=== PATIENT | female | born 1985 | race Caucasian/White ===

== ENCOUNTER 2018-03-04 20:12 | Emergency (ER) | payer MEDICAID ==
[~2018-03-04] VITALS: Ht 165.1 cm; Wt 81.7 kg
[~2018-03-04 20:12] MED LIST: CEPHALEXIN500 MG PO; CORTISPORIN-TC10 ML OTIC; DOXYCYCLINE HY100 MG PO; HUMALOG100 UNITS/; LANTUS100 UNIT/1; LISINOPRIL5 MG; NAPROXEN375 MG PO; NORCO 5-325 TA1 EACH PO; ROBAXIN500 MG PO; TRAMADOL HCL50 MG PO; ULTRAM50 MG PO; VICODIN 5-3001 EACH PO; ZOFRAN ODT8 MG SL
== END 2018-03-05 00:01 | disposition home or self-care (01) ==
LOC: ED 20:12
DX: E10.65 Type 1 diabetes mellitus with hyperglycemia (principal); F17.200 Nicotine dependence, unspecified, uncomplicated
CPT/HCPCS: 80053; 81001; 82010; 82800; 84703; 85025; 96361; 96374; 96375; 96376; 99284; J1815; J2405; J7030

== ENCOUNTER 2018-09-06 22:42 | Emergency (ER) | payer MEDICAID ==
[~2018-09-06] VITALS: Ht 165.1 cm; Wt 81.7 kg
--- OUTSIDE RECORDS SUMMARY | 2018-09-06 22:44 | XMS ---
PreManage Notification: ROBB LOPEZ Security Forgesmith Events No recent Security Events currently on file CRITERIA MET - Group Notification CARE PROVIDERS There are no care providers on record at this time. Darcie has no Care Guidelines for this patient. Matthew VISIT COUNT (12 MO.) 2 FRAN Alexandre TOTAL 2 NOTE: Visits indicate total known visits. ED/C VISIT TRACKING (12 MO.) 09/06/2018 22:42 [facility] [place] TYPE: Emergency COMPLAINT: - POSS R/L EAR INFECTION 03/04/2018 20:13 [facility] TYPE: Emergency COMPLAINT: - DIABETIC PROBLEM DIAGNOSES: - Nausea - Type 1 diabetes mellitus with hyperglycemia - Nicotine dependence, unspecified, uncomplicated INPATIENT VISIT TRACKING (12 MO.) No inpatient visits to display in this time frame [id number]
== END 2018-09-06 23:06 | disposition home or self-care (01) ==
LOC: ED 22:42
DX: H60.93 Unspecified otitis externa, bilateral (principal); E10.9 Type 1 diabetes mellitus without complications; F17.200 Nicotine dependence, unspecified, uncomplicated
CPT/HCPCS: 99282

== ENCOUNTER 2019-01-12 16:36 | Emergency (ER) | payer OTHER, BC ==
[~2019-01-12] VITALS: Ht 165.1 cm; Wt 79.4 kg
--- OUTSIDE RECORDS SUMMARY | 2019-01-12 16:38 | XMS ---
PreManage Notification: ROBB LOPEZ Security Pier Worker Events No recent Security Events currently on file CRITERIA MET - Group Notification CARE PROVIDERS There are no care providers on record at this time. Darcie has no Care Guidelines for this patient. Matthew VISIT COUNT (12 MO.) 3 FRAN Alexandre TOTAL 3 NOTE: Visits indicate total known visits. ED/C VISIT TRACKING (12 MO.) 01/12/2019 16:36 [facility] TYPE: Emergency COMPLAINT: - R SHOULDER INJURY 09/06/2018 22:42 [facility] TYPE: Emergency COMPLAINT: - POSS R/L EAR INFECTION DIAGNOSES: - Unspecified otitis externa, bilateral - Type 1 diabetes mellitus without complications - Nicotine dependence, unspecified, uncomplicated - Otalgia, bilateral 03/04/2018 20:13 [facility] [place] TYPE: Emergency COMPLAINT: - DIABETIC PROBLEM DIAGNOSES: - Nausea - Type 1 diabetes mellitus with hyperglycemia - Nicotine dependence, unspecified, uncomplicated INPATIENT VISIT TRACKING (12 MO.) No inpatient visits to display in this time frame [id number]
== END 2019-01-12 17:15 | disposition home or self-care (01) ==
LOC: ED 16:36
DX: S46.911A Strain of unspecified muscle, fascia and tendon at shoulder and upper arm level, right arm, initial encounter (principal); E10.9 Type 1 diabetes mellitus without complications; F17.200 Nicotine dependence, unspecified, uncomplicated; X50.1XXA Overexertion from prolonged static or awkward postures, initial encounter
CPT/HCPCS: 99282

== ENCOUNTER 2019-03-31 00:54 | Emergency (ER) | payer BC ==
[~2019-03-31] VITALS: Ht 165.1 cm; Wt 79.4 kg
--- OUTSIDE RECORDS SUMMARY | 2019-03-31 00:56 | XMS ---
PreManage Notification: ROBB LOPEZ Security Bunker Worker Events No recent Security Events currently on file CRITERIA MET - Group Notification CARE PROVIDERS DREW BAUTISTA Physician 01/13/2019-Current PHONE: [phone] Darcie has no Care Guidelines for this patient. E.Isreal VISIT COUNT (12 MO.) 3 FRAN Alexandre TOTAL 3 NOTE: Visits indicate total known visits. ED/UCC VISIT TRACKING (12 MO.) 03/31/2019 00:55 [facility] TYPE: Emergency COMPLAINT: - SORE THROAT, EAR PAIN 01/12/2019 16:36 [facility] TYPE: Emergency COMPLAINT: - R SHOULDER INJURY DIAGNOSES: - Type 1 diabetes mellitus without complications - Nicotine dependence, unspecified, uncomplicated - Strain of unspecified muscle, fascia and tendon at shoulder and upper arm level, right arm, initial encounter - Overexertion from prolonged static or awkward postures, initial encounter - Unspecified injury of right shoulder and upper arm, initial encounter 09/06/2018 22:42 [facility] TYPE: Emergency COMPLAINT: - POSS R/L EAR INFECTION DIAGNOSES: - Unspecified otitis externa, bilateral - Type 1 diabetes mellitus without complications - Nicotine dependence, unspecified, uncomplicated - Otalgia, bilateral INPATIENT VISIT TRACKING (12 MO.) No inpatient visits to display in this time frame [id number]
[2019-03-31] MEDS ORDERED: LISINOPRIL2.5 MG PO (01:35)
[2019-03-31] MEDS ORDERED: AMOXICILLIN500 MG PO (02:21)
== END 2019-03-31 02:44 | disposition home or self-care (01) ==
LOC: ED 00:54
DX: H66.92 Otitis media, unspecified, left ear (principal); E10.9 Type 1 diabetes mellitus without complications; F17.200 Nicotine dependence, unspecified, uncomplicated; Z79.899 Other long term (current) drug therapy
CPT/HCPCS: 99282

== ENCOUNTER 2019-05-18 09:10 | Emergency (ER) | payer OTHER, BC ==
[~2019-05-18] VITALS: Ht 165.1 cm; Wt 79.4 kg
[~2019-05-18 09:10] MED LIST changes: +AMOXICILLIN500 MG PO; +LISINOPRIL2.5 MG PO
--- OUTSIDE RECORDS SUMMARY | 2019-05-18 09:14 | XMS ---
PreManage Notification: ROBB LOPEZ Security Intensive Care Medicine Specialist Events No recent Security Events currently on file CRITERIA MET - Group Notification CARE PROVIDERS DREW BAUTISTA Physician 01/13/2019-Current PHONE: [phone] Darcie has no Care Guidelines for this patient. E.Isreal VISIT COUNT (12 MO.) 4 FRAN Alexandre TOTAL 4 NOTE: Visits indicate total known visits. ED/UCC VISIT TRACKING (12 MO.) 05/18/2019 09:11 [facility] TYPE: Emergency COMPLAINT: - RIGHT SHOULDER PAIN, INJ 03/31/2019 00:55 [facility] TYPE: Emergency COMPLAINT: - SORE THROAT, EAR PAIN DIAGNOSES: - Nicotine dependence, unspecified, uncomplicated - Other group home (current) drug therapy - 1 Type 1 diabetes mellitus without complications - Otitis media, unspecified, left ear - Otalgia, left ear 01/12/2019 16:36 [facility] TYPE: Emergency COMPLAINT: - R SHOULDER INJURY DIAGNOSES: - 1 Type 1 diabetes mellitus without complications - Nicotine dependence, unspecified, uncomplicated - Strain unsp musc/fasc/tend at shldr/up arm, right arm, init - Overexertion from prolonged static or awkward postures, init - Unsp injury of right shoulder and upper arm, init encntr 09/06/2018 22:[address] [facility] [place] TYPE: Emergency COMPLAINT: - POSS R/L EAR INFECTION DIAGNOSES: - Unspecified otitis externa, bilateral - 1 Type 1 diabetes mellitus without complications - Nicotine dependence, unspecified, uncomplicated - Otalgia, bilateral INPATIENT VISIT TRACKING (12 MO.) No inpatient visits to display in this time frame [id number]
[2019-05-18] MEDS ORDERED: NORCO 5-325 TA1 EACH PO (09:57)
== END 2019-05-18 10:10 | disposition home or self-care (01) ==
LOC: ED 09:10
DX: S43.401A Unspecified sprain of right shoulder joint, initial encounter (principal); X58.XXXA Exposure to other specified factors, initial encounter; E10.9 Type 1 diabetes mellitus without complications; F17.200 Nicotine dependence, unspecified, uncomplicated; Z79.899 Other long term (current) drug therapy
CPT/HCPCS: 99283

== ENCOUNTER 2020-01-15 00:52 | Emergency (ER) | payer BC ==
[~2020-01-15] VITALS: Ht 165.1 cm; Wt 77.1 kg
--- OUTSIDE RECORDS SUMMARY | 2020-01-15 00:54 | XMS ---
PreManage Notification: ROBB LOPEZ Security Supervisor Mattress And Boxsprings Events No recent Security Events currently on file CRITERIA MET - Group Notification CARE PROVIDERS DREW BAUTISTA Physician Retail Salesperson 01/13/2019-Current PHONE: [phone] Darcie has no Care Guidelines for this patient. EGretchen VISIT COUNT (12 MO.) 3 FRAN Alexandre TOTAL 3 NOTE: Visits indicate total known visits. ED/UCC VISIT TRACKING (12 MO.) 01/15/2020 00:52 [facility] TYPE: Emergency COMPLAINT: - CHEST PAIN 05/18/2019 09:11 [facility] [place] TYPE: Emergency COMPLAINT: - RIGHT SHOULDER PAIN, INJ/WORKERS COMP DIAGNOSES: - Nicotine dependence, unspecified, uncomplicated - Pain in right shoulder - Type 1 diabetes mellitus without complications - Exposure to other specified factors, initial encounter - Other shelter (current) drug therapy - Unspecified sprain of right shoulder joint, initial encounter 03/31/2019 00:55 [facility] [place] TYPE: Emergency COMPLAINT: - SORE THROAT, EAR PAIN DIAGNOSES: - Nicotine dependence, unspecified, uncomplicated - Other shelter (current) drug therapy - Type 1 diabetes mellitus without complications - Otitis media, unspecified, left ear - Otalgia, left ear INPATIENT VISIT TRACKING (12 MO.) No inpatient visits to display in this time frame [id number]
--- NOTE | 2020-01-15 12:58 | EKG ---
[facility] [address] [facility] [place], [place] [address] Signed Normal sinus rhythm Normal ECG No previous ECGs available Confirmed by PHOEBE VALLEJO MD ([id number]) on 01/15/2020 12:57:52 PM Electronically Signed By: PHOEBE VALLEJO MD 01/15/20 1258 PATIENT NAME: ROBB LOPEZ Electrocardiogram DATE OF : 85 PHYSICIAN: PHOEBE VALLEJO MD REPORT #: [id number] REPORT IS CONFIDENTIAL AND NOT TO BE RELEASED WITHOUT AUTHORIZATION
== END 2020-01-15 06:00 | disposition home or self-care (01) ==
LOC: ED 00:52
DX: R07.9 Chest pain, unspecified (principal); E10.9 Type 1 diabetes mellitus without complications; F17.200 Nicotine dependence, unspecified, uncomplicated; Z79.899 Other long term (current) drug therapy
CPT/HCPCS: 71045; 71260; 80053; 83735; 84484; 85025; 85379; 93005; 93010; 99285-25; J1815; J7030; Q9967

== ENCOUNTER 2020-10-02 22:44 | Emergency (ER) | payer BC, OTHER ==
[~2020-10-02] VITALS: Ht 165.1 cm; Wt 77.0 kg
--- OUTSIDE RECORDS SUMMARY | 2020-10-02 22:46 | XMS ---
PreManage Notification: ROBB LOPEZ Security Globe Cleaner Events No recent Security Events currently on file CRITERIA MET - Group Notification CARE PROVIDERS DREW BAUTISTA Physician County Auditor 01/13/2019-Current PHONE: [phone] Darcie has no Care Guidelines for this patient. EGretchen VISIT COUNT (12 MO.) 2 FRAN Alexandre TOTAL 2 NOTE: Visits indicate total known visits. ED/UCC VISIT TRACKING (12 MO.) 10/02/2020 22:45 [facility] TYPE: Emergency COMPLAINT: - LT ANKLE PAIN 01/15/2020 00:52 [facility] TYPE: Emergency COMPLAINT: - CHEST PAIN DIAGNOSES: - Nicotine dependence, unspecified, uncomplicated - Type 1 diabetes mellitus without complications - Other exterminator (current) drug therapy - Chest pain, unspecified INPATIENT VISIT TRACKING (12 MO.) No inpatient visits to display in this time frame [id number]
== END 2020-10-02 23:55 | disposition home or self-care (01) ==
LOC: ED 22:44
DX: M25.572 Pain in left ankle and joints of left foot (principal); E10.9 Type 1 diabetes mellitus without complications; F17.200 Nicotine dependence, unspecified, uncomplicated; Z79.899 Other long term (current) drug therapy
CPT/HCPCS: 73610; 99283-25

== ENCOUNTER 2023-04-26 21:34 | Observation (INO) | payer OTHER ==
[~2023-04-26] VITALS: Ht 165.1 cm; Wt 71.8 kg
[~2023-04-26 21:34] MED LIST changes: +AMOX TR-K CLV1 EAC1 PO
--- OUTSIDE RECORDS SUMMARY | 2023-04-26 21:42 | XMS ---
PreManage Notification: ROBB LOPEZ Security Sheet Metal Apprentice Events No recent Security Events currently on file CRITERIA MET - Group Notification - [facility] - 2 Visits in 30 Days CARE PROVIDERS -, [place]- Dentist: It Consulting Manager [facility] PHONE: [phone] DREW BAUTISTA Physician Cloth Tearer Current PHONE: Unknown GABRIEL LUCERO [facility]/Center: [facility] PHONE: Unknown VIKKI VIRAMONTES [facility] Current PHONE: Unknown Darcie has no Care Guidelines for this patient. Matthew VISIT COUNT (12 MO.) 2 FRAN Alexandre TOTAL 2 NOTE: Visits indicate total known visits. ED/UCC VISIT TRACKING (12 MO.) 04/26/2023 21:34 [facility] [place] TYPE: Emergency COMPLAINT: - FOOT PAIN 04/09/2023 08:[address] [facility] [place] TYPE: Emergency COMPLAINT: - L FOOT PAIN DIAGNOSES: - Cellulitis of left lower limb - stereotyper (current) use of insulin - Nicotine dependence, unspecified, uncomplicated - Other nursing home (current) drug therapy - Pain in left foot - Type 1 diabetes mellitus without complications INPATIENT VISIT TRACKING (12 MO.) No inpatient visits to display in this time frame [id number]
[2023-04-26 22:22] LABS: BASOPHILS 0.8 % (0-2); EOSINOPHILS 4.1 % (0-6); HEMATOCRIT 30.4 % (35.0-50.0); HEMOGLOBIN 10.1 g/dL (12.0-18.0); LYMPHOCYTES 32.7 % (24-44); MCH 28.7 (27-36); MCHC 33.2 g/dl (30-36); MCV 86.5 fl (81-99); MONOCYTES 5.2 % (0-12); NEUTROPHILS 57.2 % (39-80); PLATELET COUNT 438 K/uL (140-440); RBC 3.52 M/ul (4.3-5.7); RDW 13.1 (10.5-15.0)
[2023-04-26 22:41] LABS: LACTIC ACID, BLOOD 1.2 mmol/L (0.4-2.0)
[2023-04-26 22:44] LABS: ALBUMIN 2.6 g/dL (3.4-5.0); ALBUMIN/GLOBULIN RATIO 0.52 (1.1-2.4); ANION GAP 14.4 (7-21); BILIRUBIN, TOTAL 0.1 ng/dL (0.2-1.0); BUN/CREATININE RATIO 10.84 (6.0-28.6); CALCIUM 8.7 mg/dL (8.5-10.1); CREATININE, SERUM 0.83 mg/dL (0.55-1.02); POTASSIUM 4.4 mmol/L (3.5-5.1); PROTEIN, TOTAL 7.6 g/dL (6.4-8.2)
[2023-04-27 00:47] LABS: PH, VENOUS 7.429 (7.31-7.41)
[2023-04-27 01:36] LABS: INFLUENZA B NAA NEGATIVE (NEGATIVE); RESPIRATORY SYNCYTIAL VIR NAA NEGATIVE (NEGATIVE)
[2023-04-27 02:32] VITALS: BP 123/81
--- NOTE | 2023-04-27 03:00 | NUR ---
PT ARRIVED TO THE UNIT. FAST FOOD TEAM MEMBER GAVE REPORT AT BEDSIDE. PT WAS ABLE TO AMBULATE TO BED INDEPENDENTLY. VITAL SIGNS WITH IN NORMAL LIMITS. LEFT FOOT ULCER ASSESSED AND DRESSED. PT SAFETY EXPECTATIONS EXPLAINED, ALL QUESTIONS AND CONCERSN ADDRESSED. CALL LIGHT WITH IN REACH.
[2023-04-27 05:20] LABS: BASOPHILS 0.7 % (0-2); EOSINOPHILS 5.1 % (0-6); HEMATOCRIT 30.9 % (35.0-50.0); HEMOGLOBIN 10.2 g/dL (12.0-18.0); LYMPHOCYTES 37.9 % (24-44); MCH 28.6 (27-36); MCHC 33.1 g/dl (30-36); MCV 86.3 fl (81-99); MONOCYTES 4.8 % (0-12); NEUTROPHILS 51.5 % (39-80); PLATELET COUNT 308 K/uL (140-440); RBC 3.58 M/ul (4.3-5.7)
[2023-04-27 05:30] LABS: ANION GAP 12.8 (7-21); BUN/CREATININE RATIO 16.12 (6.0-28.6); CALCIUM 8.5 mg/dL (8.5-10.1); CREATININE, SERUM 0.62 mg/dL (0.55-1.02); POTASSIUM 3.8 mmol/L (3.5-5.1)
[2023-04-27 06:00] VITALS: BP 97/65
--- NOTE | 2023-04-27 06:46 | NUR ---
PT IS RESTING PEACFULLY IN BED. NO COMPLAINTS OF PAIN AT THIS TIME. ALL VS ARE WITH IN NORMAL LIMITS AT THIS TIME. QUESTIONS AND CONCERNS ADDRESSED. CALL LIGHT WITH IN REACH.
--- NOTE | 2023-04-27 08:00 | NUR ---
WOKE PATIENT FOR ASSESSMENT AND ACCUCHECK. STATES SHE SLEPT WELL AFTER RECEIVING MORPHINE. ACCUCHECK 349. HUMALOG 9 UNITS SQ GIVEN. TALKED WITH PATEINT ABOUT WOUND ON HER LEFT FOOT. DRESSING TO LEFT FOOT IS INTACT. C/O PAIN, DENIES NEED FOR PAIN MEDICATION. IVF PATENT. SITTING UP IN BED READY FOR BREAKFAST.
[2023-04-27 08:23] VITALS: BP 126/83
--- NOTE | 2023-04-27 09:00 | NUR ---
WOUND CONSULT ORDERED. WAITRESS IS AWARE. DR. MONTOYA HAS BEEN HERE TO SEE PATEINT. POSSIBLE DISCHARGE TODAY.
--- NOTE | 2023-04-27 10:00 | NUR ---
DRESSING TO LEFT FOOT REMAINS INTACT.
--- NOTE | 2023-04-27 11:00 | NUR ---
UP TO BR TO VOID. AMBULATING W/O ASSIST. BACK TO BE W/O INCIDENT. DENIES NEED FOR PAIN MEDICATION.
[2023-04-27 11:50] VITALS: BP 135/91
--- NOTE | 2023-04-27 12:00 | NUR ---
ORDERS RECEIVED TO DISCHARGE PATIENT. SITTING UP IN BED FOR LUNCH.
[2023-04-27] MEDS ORDERED: LEVOFLOXAC750 MG/150 PO (12:09)
--- NOTE | 2023-04-27 12:35 | NUR ---
DISCHARGE INSTRUCTIONS GIVEN WITH PATIENT UNDERSTANDING. SL DC'D WITH CATH INTACT.
[2023-04-27 12:44] VITALS: BP 146/93
--- NOTE | 2023-04-27 12:50 | NUR ---
DISCHARGED VIA W/C. HERE TO TAKE PATIENT HOME.
--- NOTE | 2023-04-27 13:10 | NUR ---
DR. DRAKE HERE TO SEE PATIENT. ORDERS RECEIVED.
--- NOTE | 2023-04-27 13:20 | NUR ---
TO CT VIA W/C.
--- NOTE | 2023-04-27 13:30 | NUR ---
RETURN TO CCU. SITTING UP IN BED FOR LUNCH. TOLERATED CT WELL. MOVING WELL WITH INCREASE PAIN WITH MOVEMENT.
== END 2023-04-27 12:55 | disposition home or self-care (01) ==
LOC: ED 21:34 → CCU 21:35
PROVIDERS: Family Medicine; ADMIT Internal Medicine; ATTEND Internal Medicine
DX: L03.116 Cellulitis of left lower limb (principal); S91.302A Unspecified open wound, left foot, initial encounter; X58.XXXA Exposure to other specified factors, initial encounter; E10.9 Type 1 diabetes mellitus without complications; F17.200 Nicotine dependence, unspecified, uncomplicated; Z79.4 Long term (current) use of insulin; Z79.899 Other long term (current) drug therapy; Z20.822 Contact with and (suspected) exposure to COVID-19
CPT/HCPCS: 36415; 73700; 80048; 80053; 82010; 82803; 83605; 85025; 87502; 96361; 96374; 96375; 99284-25; J1815; J1956; J2270; J2405; J3370; J7030; J7121; Q9967; U0002

== ENCOUNTER 2023-05-20 08:12 | Inpatient (IN) | payer OTHER ==
[~2023-05-20] VITALS: Ht 165.1 cm; Wt 69.0 kg
[~2023-05-20 08:12] MED LIST changes: -HUMALOG100 UNITS/; +HUMALOG100 UNITS/ SUB-Q; -LANTUS100 UNIT/1; +LANTUS100 UNITS/ SUB-Q; +LEVOFLOXAC750 MG/150 PO
--- OUTSIDE RECORDS SUMMARY | 2023-05-20 08:21 | XMS ---
PreManage Notification: ROBB LOPEZ Security Cnc Laser Operator Events No recent Security Events currently on file CRITERIA MET - Group Notification - [facility] - 2 Visits in 30 Days CARE PROVIDERS -, [place]- Dentist: Auto Seat Cover Installer [facility] PHONE: [phone] DREW BAUTISTA Physician Teacher Of The Handicapped Current PHONE: Unknown GABRIEL LUCERO [facility]/Center: [facility] PHONE: Unknown VIKKI VIRAMONTES [facility] Current PHONE: Unknown Darcie has no Care Guidelines for this patient. Matthew VISIT COUNT (12 MO.) 3 FRAN Alexandre TOTAL 3 NOTE: Visits indicate total known visits. 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 - Nicotine dependence, unspecified, uncomplicated - Other custodial (current) drug therapy - Pain in left foot - Type 1 diabetes mellitus without complications INPATIENT VISIT TRACKING (12 MO.) 04/26/2023 21:35 [facility] [place] TYPE: Observation COMPLAINT: - CELLULITIS DIAGNOSES: - Cellulitis of left lower limb - Contact with and (suspected) exposure to COVID-19 - Exposure to other specified factors, initial encounter - retirement (current) use of insulin - Nicotine dependence, unspecified, uncomplicated - Other custodial (current) drug therapy - Type 1 diabetes mellitus without complications - Unspecified open wound, left foot, initial encounter [id number]
[2023-05-20 09:39] LABS: BASOPHILS 0.6 % (0-2); EOSINOPHILS 2.1 % (0-6); HEMATOCRIT 39.4 % (35.0-50.0); HEMOGLOBIN 12.8 g/dL (12.0-18.0); LYMPHOCYTES 13.7 % (24-44); MCHC 32.5 g/dl (30-36); MONOCYTES 5.9 % (0-12); NEUTROPHILS 77.7 % (39-80); PLATELET COUNT 315 K/uL (140-440); RBC 4.58 M/ul (4.3-5.7); RDW 13.3 (10.5-15.0)
[2023-05-20 09:55] LABS: ALBUMIN/GLOBULIN RATIO 0.57 (1.1-2.4); ANION GAP 12.8 (7-21); BILIRUBIN, TOTAL 0.2 ng/dL (0.2-1.0); BUN/CREATININE RATIO 23.07 (6.0-28.6); CALCIUM 9.3 mg/dL (8.5-10.1); CREATININE, SERUM 0.78 mg/dL (0.55-1.02); POTASSIUM 4.8 mmol/L (3.5-5.1); PROTEIN, TOTAL 8.3 g/dL (6.4-8.2)
[2023-05-20 11:16] LABS: INFLUENZA B NAA NEGATIVE (NEGATIVE); RESPIRATORY SYNCYTIAL VIR NAA NEGATIVE (NEGATIVE)
[2023-05-20 12:20] VITALS: BP 147/89
--- NOTE | 2023-05-20 12:42 | NUR ---
CALL FROM LAB THAT WOUND CULTURES HAD NOT BEEN DONE IN ER. CALL TO ER NURSE DAX, SHE VERIFIED THAT WOUND CULTURES WERE NOT DONE. CALL TO DR. DE THAT WOUND CULTURES HAD NOT BEEN DONE BEFORE LEVAQUIN AND DAPTO ANTIBIOTICS WERE GIVEN AND HE WOULD LIKE US TO GO AHEAD AND GET CULTURES.
--- NOTE | 2023-05-20 12:55 | NUR ---
CALL TO DR. RONQUILLO, HE IS CALLING FOR PODIATRY CONSULT AND WE WILL WAIT ON WOUND NURSE CONSULT AT THIS TIME.
--- NOTE | 2023-05-20 14:53 | NUR ---
MED REC COMPLETE
--- NOTE | 2023-05-20 14:56 | NUR ---
PT IS A 37 YEAR OLD FEMALE WITH IDDM TYPE 1, CURRENT EVERY DAY SMOKER. PT HERE FOR LEFT DORSAL FOOT WOUND. PT REPORTS SHE HURT HER LEFT FOOT IN FEBRUARY, SHE CANNOT REMEMBER HOW, FOLLOWING THIS EVEN HER LEFT FOOT DEVELOPED A PAINFUL "BUMP" FOR WHICH SHE SOUGHT TREATMENT IN THE [facility] ER IN . PT STATES SHE WAS DX'D WITH A HEMATOMA ON HER LEFT DORSAL FOOT. SHE WAS REFERRED TO THE [facility] DAY [facility]OUND [facility] SERVICES WHO MANAGED THE HEMATOMA/WOUND FOR APPROXIMATELY 4-5 WEEKS WITH MEDIHONEY AND HYDROFERA BLUE DRESSINGS. PT REPORTS THAT WHEN SHE WOKE UP THIS MORNING SHE FOUND A LARGE PAINFUL BUMP ON THE MEDIAL BORDER OF HER WOUND WHICH SHE STATES BROKE AND EXPRESSED PUSS AND BLOOD. SHE THEN CAME IMEDIATELY TO THE [facility] ER. UPON ASSESSMENT NOTED PT HAS A FULLTHICKNESS WOUND ON THE DORSAL ASPECT OF THE LEFT FOOT OVER THE 4TH AND 5TH METATARSALS. THERE IS A FOUL ODOR. THE WOUND BASE IS 60% DEVITALIZED TENDON/TISSUE AND 40% PINK MOIST GRANULATION TISSUE. IN THE AREA OF DEVITALIZED TISSUE THE WOUND PROBES TO BONE. THERE IS A SMALL AMOUNT OF YELLOW DRAINAGE. A WOUND CULTURE WAS OBTAINED. PICTURES AND MEASUREMENTS WHERE OBTAINED. THE PERIWOUND ERYTHEMA BORDERS WERE MARKED. NOTED A LARGE RED BULGE AT 1200 OF THE MAGEN-WOUND WHICH IS FLUCTUANT, PAINFUL AND HAS A VESICLE OVER THE CENTER, SUSPECTED ABCESS. WOUND CLEANSED WITH WOUND CLEANSER AND NS, PATTED DRY. HSA-PW-XYLAF GAUZE DRESSING APPLIED AND SECURED WITH ELASTIC BANDAGE. PT TOLERATED WELL. PT WAITING FOR EVALUATION BY PODIATRY.
--- NOTE | 2023-05-20 16:00 | NUR ---
Spoke with ROBB. She admits to the hospital with failure at home for cellulitis. Pt states she lives in a home with 2 steps with her spouse, son, and mom. She does not use any DME. She and family split vice president compliance, except for shopping and cleaning. She does these. Pt denies issues of getting in or out of home. 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 She states she is able to work and keep her foot up. 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 She denies financial issues and does not use a food bank or have financial needs. Both she and spouse work and he also has VA benefits. Pt plans on dc to home after seeing podiatry. She does not currently have a pcp, but does have an appt to see Dr. Jiang at the physician clinic on the 27 of May to establish care.
--- NOTE | 2023-05-20 17:43 | NUR ---
INTO SEE PT. COMPLETES EVALUATION OF LEFT FOOT WOUND, IRRIGATES AND DRESSES WOUND.
--- NOTE | 2023-05-20 17:57 | NUR ---
DR. POON TO PERFORM SURGICAL DEBRIDEMENT TOMORROW, 05/21/23, IN OR. DISCUSSED WITH PT NPO STATUS STARTING AT MIDNIGHT TONIGHT. PT VERBALIZES UNDERSTANDING.
[2023-05-20 18:09] VITALS: BP 125/81
--- NOTE | 2023-05-20 19:12 | NUR ---
BEDSIDE REPORT RECEIVED FROM LILLIANA COTTON, PT ALERT AND CHEERFUL, WITHOUT REQUESTS AT THIS TIME, PT LAYING IN BED.
[2023-05-20 20:49] VITALS: BP 130/80
--- NOTE | 2023-05-20 20:49 | NUR ---
VS DONE PER IBRAHIMA BELCHER, VS REVIEWED AND STABLE FOR PT, REPORT RECEIVED OF ELEVATED BLOOD SUGAR OF 434, PT TOLD IBRAHIMA BELCHER THAT SHE DRANK A BOTTLE OF LEMONAIDE THAT HER MOTHER BROUGHT IN EARILIER SO SHE THOUGHT HER BLOOD SUGAR WOULD PROBABLY BE ELEVATED.
--- NOTE | 2023-05-20 21:00 | NUR ---
PRIMARY RN NOTIFIED RE BLOOD SUGAR CHECK DONE AND THE RESULT.
--- NOTE | 2023-05-20 21:15 | NUR ---
TC TO DR RONQUILLO TO REPORT ELEVATED BLOOD SUGAR OF 434, ORDERS RECEIVED TO GIVE HUMALOG 11 UNITS SQ, GLARGINE 10 UNITS SQ AND IN ADDITION GIVEN 5 UNITS OF REGULAR INSULIN 5 UNITS SQ, ORDER READ BACK TO MD TO VERIFY. PLAN REPEAT BLOOD SUGAR 0200 OR PRN.
--- NOTE | 2023-05-20 21:33 | NUR ---
PT AWAKE AND ALERT, INSULINS GIVEN PER ORDER, PLAN TO MONITOR BLOOD SUGARS EVERY 6 HOURS WHEN PT MADE NPO AFTER MIDNIGHT. PT ENCOURAGED TO CALL NURSE WITH ANY SIGNS OF HYPOGLYCEMIA OR OTHER CONCERNS. ASSESSMENT COMPLETED, LEFT FOOT DRESSING DRY AND INTACT, ABLE TO WIGGLE TOES, TOES WARMS, BASELINE NEUROPATHY (TINGLING) REMAINS, POSTERIOR TIBIAL PULSE PALPABLE, STRONG. WATER GIVEN, PT VISITING WITH . PT DENIES NEED FOR PAIN MEDICATION.
--- NOTE | 2023-05-20 21:42 | NUR ---
LR HUNG AND INFUSING WELL AT 100ML/HR PER LEFT AC SL, SITE INTACT. PT WITHOUT REQUESTS.
--- NOTE | 2023-05-20 23:00 | NUR ---
PT AWAKE, RESTING IN BED, LOOKING AT CELL PHONE, PT STATES SHE RECENTLY GOT UP TO VOID, BACK TO BED, WITHOUT REQUESTS AT THIS TIME.
[2023-05-21] VITALS (7 sets, daily range): BP systolic 92–139; BP diastolic 54–93
--- NOTE | 2023-05-21 00:02 | NUR ---
PT REMAINS AWAKE, WITHOUT REQUESTS, PT MADE NPO FOR AM SURGERY, PT WITHOUT IV INFUSING WELL.
--- NOTE | 2023-05-21 02:00 | NUR ---
PT AWAKEN, ALERT, VS DONE AND STABLE, AFEBRILE, ACCUCHECK 186, IV INFUSING WELL, PT WITHOUT REQUESTS, ATTEMPTING TO REST, REMAINS NPO.
--- NOTE | 2023-05-21 04:40 | NUR ---
PT APPEARS TO SLEEP, RESP EVEN AND REG.
[2023-05-21 05:19] LABS: HEMOGLOBIN 11.1 g/dL (12.0-18.0); MCH 28.1 (27-36)
[2023-05-21 05:21] LABS: BASOPHILS 0.4 % (0-2); EOSINOPHILS 3.7 % (0-6); HEMATOCRIT 33.7 % (35.0-50.0); LYMPHOCYTES 25.4 % (24-44); MCHC 32.9 g/dl (30-36); MCV 85.3 fl (81-99); MONOCYTES 8.2 % (0-12); NEUTROPHILS 62.3 % (39-80); PLATELET COUNT 280 K/uL (140-440); RBC 3.95 M/ul (4.3-5.7); RDW 13.5 (10.5-15.0)
[2023-05-21 05:31] LABS: ALBUMIN 2.2 g/dL (3.4-5.0); ALBUMIN/GLOBULIN RATIO 0.49 (1.1-2.4); ANION GAP 13.8 (7-21); BILIRUBIN, TOTAL 0.2 ng/dL (0.2-1.0); BUN/CREATININE RATIO 27.77 (6.0-28.6); CALCIUM 8.2 mg/dL (8.5-10.1); CREATININE, SERUM 0.54 mg/dL (0.55-1.02); MAGNESIUM 1.5 mg/dL (1.8-2.4); PHOSPHORUS, INORGANIC 4.1 mg/dL (2.5-4.9); POTASSIUM 3.8 mmol/L (3.5-5.1); PROTEIN, TOTAL 6.7 g/dL (6.4-8.2)
--- NOTE | 2023-05-21 06:15 | NUR ---
PT INSTRUCTED ON CHLORHEXIDINE WIPES, INSTRUCTION SHEET GIVEN TO PT, PT UP TO BR TO COMPLETE AND PUT ON NEW GOWN, BED LINEN CHANGED, PT BACK TO BED, ASSESSMENT COMPLETED, LEFT FOOT DRESSING DRY, CMS TO LEFT FOOT UNCHANGED, IV PATENT AND IV SITE INTACT. PT REMAINS NPO, WITHOUT REQUESTS.
--- NOTE | 2023-05-21 06:49 | NUR ---
PRE PROCEDURE CHECK OUT STARTED.
--- NOTE | 2023-05-21 07:13 | NUR ---
REPORT RECEIVED FROM YURY CARTER. PT LAYING IN BED WITH EYES CLOSED. RR EVEN AND UNLBAORED. BED ALARM ON AND SIDE RAILS UP FOR SAFTEY. NO OTHER NEEDS IDENTIFIED AT THIS TIME. CALL LIGHT IN REACH.
--- NOTE | 2023-05-21 08:48 | NUR ---
THIS RN TO ROOM TO ASSIST WITH START. 20G IV STARTED TO RIGHT FORARM PER PER PROTOCOL. PT TOLEARTED WELL. BRISK BLOOD RETURN NOTED. IV FLUIDS RESTRTED BY YURY URBINA. NO ADDITIONAL REQUESTS OR COMPLAINTS. CALL LIGHT WITHIN REACH. BED RAILS UP.
--- NOTE | 2023-05-21 08:55 | NUR ---
IN TO ADMINISTER MEDICATION, SEE MAR. IV IN LEFT AC NOTED TO BE LEAKING AND AC NOTED TO BE EDEMATOUS. IV REMOVED WNL. THIS RN ATTEMTED 2 IC STARTS WITH NO SUCCESS. YURY GERMAIN IN TO ATTEMPT IV START WITH SUCCESS. IV FLUSHES WNL. IV FLUIDS INFUSE WNL. ASSESSMENT COMPLETE. PT REPORTING PAIN 7/10 IN LEFT FOOT, PT DENIES PRN PAIN MEDICATION WHEN OFFERED. LUNG SOUNDS CLEAR. BOWEL TONES ACTIVE. PEDAL PULSES PALPABLE. LEFT FOOT DRESSING C/D/I. CAPILARY REFILL IN BILATERAL FEET <3 SECONDS. PT DENIES ANY OTHER NEEDS AT THIS TIME. CALL LIGHT IN REACH. FAMILY IN ROOM.
--- NOTE | 2023-05-21 09:11 | NUR ---
Call light answered, patient states IV irritating her. Assessment complete, no redness, infiltration or extravasation noted. IVF changed to strictly LR, flushed with saline, cool cloth applied to site, made plan to round to assess for improvement.
--- NOTE | 2023-05-21 09:17 | NUR ---
Patient assessed, reports decreased irritation to IV site, no signs of infiltration noted. IV ABX restarted concurrently with IVF to provide dilution and comfort for patient. Made plan to round to assess for changes.
--- NOTE | 2023-05-21 09:20 | NUR ---
Attempted to see pt, she has gone to surgery. No plan for dc today.
--- NOTE | 2023-05-21 09:25 | NUR ---
Rounded on patient who states no further irritation to IV site. Prepared for OR nurse to take patient. No further needs. Call light in reach.
--- NOTE | 2023-05-21 09:40 | NUR ---
IN TO ROUND ON PT. PT OUT OF ROOM TO SURGERY PER YURY HIGUERA.
--- NOTE | 2023-05-21 10:15 | NUR ---
PT OUT OF ROOM, UNABLE TO ADMINISTER MEDICAITON.
--- NOTE | 2023-05-21 10:30 | NUR ---
PT GONE FROM ROOM. PRAYED FOR SUCCESSFUL PROCEDURE AND ALBA AND COMPLETE RECOVERY. LEFT GUIDEPOST WITH PRAYER CARD AND CONTACT CARD.
--- NOTE | 2023-05-21 11:17 | NUR ---
PT OFF FLOOR FOR PROCEDURE.
--- NOTE | 2023-05-21 11:45 | NUR ---
Patient returns from OR for I&D of L foot. Surgical boot sent with patient. Dressing reported to be adaptic, betadine soaked gauze, flexicon, fluff gauze, and coban. Report received from Katie COTTON. Pt CBG 184 at 1130. VSS, on RA, A+O. Afebrile and reports no pain at this time. Phone provided for patient to call her . Primary RN updated.
--- NOTE | 2023-05-21 11:57 | NUR ---
05/21/23 1157 Nivia Kohli 1114 PT ARRIVED IN PACU WIDE AWAKE WITH NO C/O'S. 1115 DR ORDERED POST OP SHOE AND PT ASKED FOR POST OP BOOT. ORDERS CHANGED BY DR POON AND POST OP BOOT GIVEN TO PT. [address] AWARE[address] 1145 TO ROOM 107. REPORT GIVEN TO RN. BED PLUGGED IN.
--- NOTE | 2023-05-21 12:17 | NUR ---
IN TO ROUND ON PT. YURY DYSON IN ROOM. IV FLUIDS STARTED. IV MAGNESIUM STARTED, SEE MAR. BEDSIDE REPORT GIVEN TO YURY DYSON. PT DENIES ANY NEEDS AT THIS TIME. CALL LIGHT IN REACH.
--- NOTE | 2023-05-21 13:52 | NUR ---
PT IS CURENTLY SLEEPING IN BED. WHEN VITALS CHECKED HER BP WAS 92/54 WITH A MAP OF 63. WILL ASSESS AGAIN IN A FEW MINUTES TO SEE IF THERE ARE ANY CHANGES. NO OTHER CARES NEEDED AT THIS TIME CALL LIGHT WITHIN REACH
--- NOTE | 2023-05-21 14:07 | NUR ---
PT IS CURRENTLY RESTING AND UPON REASSESSMENT OF PT BP IT IS 102/61 WITH A MAP OF 69.
--- NOTE | 2023-05-21 14:35 | NUR ---
Call light answered, patient requests SBA to BR to void. Surgical boot applied to L foot prior to ambulation. Patient independent with transfer. Once back to bed boot removed. Pt states "tolerable" pain to L foot with movement, denies pain medications at this time, states will call with any changes. IVF infusing WNL. Pt A+O on RA. No further needs, call light in reach.
--- NOTE | 2023-05-21 15:00 | NUR ---
UR NOTE: MCG MET OSTEOMYELITIS (ISC) INPATEINT ON ADMIT 05/20/23
--- NOTE | 2023-05-21 15:10 | NUR ---
PT IS CURRENTLY IN BED LAYING DOWN WATCHING TV AND ON THE PHONE. VITALS ARE STABLE. NO CONCERNS AT THIS TIME. NO OTHER CARES ARE NEEDED OR REQUESTED AT THIS TIME. CALL LIGHT WITHIN REACH
--- NOTE | 2023-05-21 15:33 | NUR ---
pt states that she has chronic numbness and tingling in her feet rght hand due to diabetic neuropathy.
--- NOTE | 2023-05-21 17:00 | NUR ---
Insulin administered to patient with CBG of 282. No other needs at this time.
--- NOTE | 2023-05-21 18:00 | NUR ---
I ASKED PATIENT IS THERE ANYTHING THAT I COULD GET YOU AND SHE SAID CUP OF HOT TEA WITH FOUR CREAMS AND SUBSTITUTE SUGAR.
--- NOTE | 2023-05-21 19:24 | NUR ---
SHIFT REPORT RECEIVED FROM KARIS COTTON, ASSUMING CARE OF PT.
--- NOTE | 2023-05-21 20:00 | NUR ---
PT RESTING IN BED, TALKING ON CELL PHONE, WITHOUT COMPLAINTS AT THIS TIME.
--- NOTE | 2023-05-21 22:03 | NUR ---
PT AWAKE AND ALERT, VISITING WITH FRIEND, PT C/O PAIN IN LEFT FOOT, MEDICATED PER ORDER WITH TYLENOL FOR PAIN 01/27, VS AND I/O DONE, ACCUCHECK 280, PT TAKING WATER WELL, LEFT FOOT DRESSING DRY AND INTACT, PT STATES FOOT FEELS HOT INSIDE BUT NOT AT THE SKIN LEVEL, PT ABLE TO WIGGLE TOES, TOES WARM, PT PULSE PALPABLE, IV PATENT IN RIGHT FA, SITE INTACT.
--- NOTE | 2023-05-21 22:12 | NUR ---
5 UNITS HUMALOG INSULIN GIVE FOR ACCUCHECK OF 280, RT GLARGINE INSULIN 10U GIVEN PER ORDER.
--- NOTE | 2023-05-21 22:33 | NUR ---
NEW BAG OF LR HUNG, IV SITE PATENT AND INFUSING WELL, PT CHEERFUL AND VISITING WITH FRIEND. LEFT FOOT ELEVATED ON ONE PILLOW OFF AND ON PER PT'S COMFORT.
--- NOTE | 2023-05-22 00:13 | NUR ---
PT APPEARS TO SLEEP, RESP EVEN AND REG, WITHOUT DISTRESS.
--- NOTE | 2023-05-22 00:14 | NUR ---
PT APPEARS TO SLEEP, LAYING ON RIGHT SIDE, RESP EVEN AND REG.
[2023-05-22 02:00] VITALS: BP 112/70
--- NOTE | 2023-05-22 02:00 | NUR ---
PT ASLEEP, AWAKEN FOR VS, SKIN FEELS WARM MOIST, VS STABLE, AFEBRILE, ACCUCHECK DONE DUE TO MOIST SKIN, BS 297, LEFT FOOT DRESSING DRY AND INTACT, FOOT ELEVATED ON ADDITIONAL PILLOW, PT STATES EARILIER TYLENOL DIDN'T REALLY HELP, STATES SHE MAY LIKE SOMETHING STRONGER, PT TURNED TO SIDE AND APPEARS TO BE BACK TO SLEEP, IV INFUSING WELL, PLAN TO MONITOR PAIN LEVEL.
--- NOTE | 2023-05-22 02:46 | NUR ---
PT APPEARS TO CONTINUE TO SLEEP, RESP EVEN AND REG, REMAINS ON SIDE.
--- NOTE | 2023-05-22 03:50 | NUR ---
PT APPEARS TO SLEEP, RESP EVEN AND REG, WITHOUT DISTRESS.
[2023-05-22 05:15] VITALS: BP 117/74
--- NOTE | 2023-05-22 05:15 | NUR ---
LAB IN FOR AM BLOOD DRAW, VS COMPLETED, LEFT FOOT DRESSING INTACT, PT UP TO BR TO VOID, PRIOR TO AMBULATING PT PUT ON BOOT ON LEFT FOOT, BACK TO BED, DENIES NEED FOR TYLENOL SINCE IT " DIDN'T WORK WELL", RN OFFERED TO CALL MD FOR DIFFERENT MEDICATION BUT PT REFUSES THIS AT THIS TIME. PT RESTING, LEFT FOOT DRESSING DRY AND INTACT, FRESH WATER AND TEA GIVEN PER REQUESTS.
[2023-05-22 05:31] LABS: BASOPHILS 0.7 % (0-2); EOSINOPHILS 5.1 % (0-6); HEMATOCRIT 31.8 % (35.0-50.0); HEMOGLOBIN 10.6 g/dL (12.0-18.0); LYMPHOCYTES 27.8 % (24-44); MCH 28.5 (27-36); MCHC 33.2 g/dl (30-36); MCV 85.6 fl (81-99); MONOCYTES 7.5 % (0-12); NEUTROPHILS 58.9 % (39-80); PLATELET COUNT 261 K/uL (140-440); RBC 3.72 M/ul (4.3-5.7); RDW 13.5 (10.5-15.0)
[2023-05-22 05:44] LABS: ALBUMIN/GLOBULIN RATIO 0.47 (1.1-2.4); ALKALINE PHOSPHATASE 111 U/L (46-116); ALT (SGPT) 12 U/L (14-59); ANION GAP 11.1 (7-21); AST (SGOT) 12 U/L (15-37); BILIRUBIN, TOTAL <0.1 ng/dL (0.2-1.0); BUN/CREATININE RATIO 24.24 (6.0-28.6); CALCIUM 8.3 mg/dL (8.5-10.1); CARBON DIOXIDE 26 mmol/L (21-32); CHLORIDE 105 mmol/L (98-107); CREATININE, SERUM 0.66 mg/dL (0.55-1.02); GLOMERULAR FILTRATION RATE,EST 116 mL/min (>60); POTASSIUM 4.1 mmol/L (3.5-5.1); PROTEIN, TOTAL 6.3 g/dL (6.4-8.2); UREA NITROGEN 16 mg/dL (7-18)
--- NOTE | 2023-05-22 06:40 | NUR ---
DR POON TO BEDSIDE, LEFT FOOT DRESSING CHANGED PER MD, PT DENIES NEED FOR PAIN MEDICATION AT THIS TIME AND TOLERATED DRESSING CHANGE WELL, PT WITHOUT REQUESTS AT THIS TIME.
--- NOTE | 2023-05-22 07:05 | NUR ---
REPORT RECEIVED FROM YURY CARTER. PT SITTING UP IN BED AND RESPONDS WHEN ADDRESSED. PT DENIES ANY NEEDS AT THIS TIME. CALL LIGHT IN REACH.
--- NOTE | 2023-05-22 07:25 | NUR ---
IN TO ANSWER CALL LIGHT. PT REPORTING TOILETING NEEDS. PT PLACES BOOT ON FOOT. SBA FROM BED TO RESTROOM. PT DENIES ANY OTHER NEEDS AT THIS TIME.
--- NOTE | 2023-05-22 08:54 | NUR ---
IN TO ADMINSITER MEDICATIONS, SEE MAR. PT REPORTING PAIN 7/10 IN LEFT FOOT "BURNING PAIN IN MY FOOT, SHOOTS STABBING UP MY LEG." PRN PAIN MEDICATION ADMINISTERED AFTER DISCUSSION WITH MD, SEE MAR. ASSESSMENT COMPLETE. LUNG SOUNDS CLEAR. BOWEL TONES ACTIVE. PULSES PALPABLE. PT REPORTS CHRONIC NEUROPATHY IN BILATERAL FEET. PT REPORTS NUMBNESS IN BILATERAL HANDS DUE TO ROTATOR CUFF INJURIES. PT DENIES ANY OTHER NEEDS AT THIS TIME. CALL LIGHT IN REACH.
[2023-05-22 09:00] VITALS: BP 135/85
--- NOTE | 2023-05-22 09:15 | NUR ---
Attempted to see pt. She is sleeping and not awakened. Spoke with Charge nurse. Pt is scheduled for PICC line at 1330 and will have 6 weeks of antibiotics in Ds/OP. Will follow up later with pt.
--- NOTE | 2023-05-22 10:18 | NUR ---
IN TO ROUND ON PT. PT RESTING IN BED WITH EYES CLOSED. RR EVEN AND UNLBORED. RR OF 16 NOTED. NO NEEDS IDENTIFIED AT THIS TIME. CALL LIGHT IN REACH.
--- NOTE | 2023-05-22 11:38 | NUR ---
IN TO ROUND ON PT. PT RESTING IN BED WITH EYES CLOSED, RR EVEN AND UNLABORED. RR OF 16 NOTED. NO NEEDS IDENTIFIED AT THIS TIME. CALL LIGHT IN REACH.
--- NOTE | 2023-05-22 12:08 | NUR ---
IN TO ADMINISTER MEDICATION, SEE MAR. PT LAYING ON LEFT SIDE. PT RESPONDS WHEN ADDRESSED. PT REPORTING PAIN 0/10. LUNCH TRAY ARRIVES. PT DENIES ANY OTHER NEEDS AT THIS TIME. CALL LIGHT IN REACH.
--- NOTE | 2023-05-22 13:00 | NUR ---
Spoke with pt. She plans on dc to home and will return for OP antibiotics. Dr. Ji in agreement. Printed OP antibiotic and wound care forms for Dr. sutton complete.
--- NOTE | 2023-05-22 13:02 | NUR ---
IN TO ROUND ON PT. PT LAYING IN BED. PT RESPONDS WHEN ADDRESSED. ASKED PT TO ATTEMPT TO USE RESTROOM PRIOR TO PICC PLACEMENT. PT AMBULATES WITH BOOT ON LEFT FOOT FROM BED TO RESTROOM WITH STEADY GAIT. PT DENIES ANY NEEDS AT THIS TIME. CALL LIGHT IN REACH.
--- NOTE | 2023-05-22 13:53 | NUR ---
IN TO ROUND ON PT. PT LAYING IN BED. PT DENIES ANY NEEDS AT THIS TIME. SIGNIFICANT OTHER IN ROOM. TRAY REMOVED. CALL LIGHT IN REACH.
[2023-05-22 14:10] VITALS: BP 133/81
--- NOTE | 2023-05-22 14:24 | NUR ---
IN PT REPORTING HEADACHE PAIN 02/27. PRN PAIN MEDICATION ADMINISTERED, SEE MAR. DR. RONQUILLO TO ROOM. SHERIN, RN AND RAUL, RN IN TO PLACE PICC LINE. NO NEEDS FROM THIS RN AT THIS TIME. CALL LIGHT IN REACH.
--- NOTE | 2023-05-22 14:24 | NUR ---
PATIENT AWAKE IN BED, VISITOR AT BEDSIDE. VITALS AND I&OS CHARTED. FRESH ICE WATER PROVIDED. PATIENT REQUESTING TYLENOL, RN NOTIFIED.
[2023-05-22] MEDS ORDERED: LEVOFLOXAC750 MG/150 IV (14:28)
[2023-05-22] MEDS ORDERED: CUBICIN RF500 MG IV (14:29)
--- NOTE | 2023-05-22 15:33 | NUR ---
IN TO ROUND ON PT. PT LAYING IN BED AND RESPONDS WHEN ADDRESSED. SHERIN RN AND RAUL RN DONE WITH PLACING PICC. IMAGING HERE TO OBTAIN IMAGE FOR PLACEMENT. PT DENIES ANY NEEDS FROM THIS RN AT THIS TIME. CALL LIGHT IN REACH.
--- NOTE | 2023-05-22 16:12 | NUR ---
IN TO ROUND ON PT. PT SITTING UP IN BED. OFFERED FLU VACCINE. PT REFUSES AT THIS TIME. WILL RETURN TO GO OVER DC INSTRUCTIONS WHEN YURY CARTER IN DONE WITH PT. NO OTHER NEEDS FROM THIS RN AT THIS TIME. CALL LIGHT IN REACH.
--- NOTE | 2023-05-22 16:47 | NUR ---
IN TO ADMINISTER MEDICATION, SEE MAR. SAWYER, PHARMACY IN ROOM TALKING WITH PT. VERBAL AND WRITTEN DC INSTRUCTIONS PROVIDED. PT VERBALIZES UNDERSTANDING. QUESTIONS ANSWERED. BELONGINGS RETURNED. PT DENIES ANY OTHER NEEDS AT THIS TIME. CALL LIGHT IN REACH.
[2023-05-22 16:55] VITALS: BP 155/88
--- NOTE | 2023-05-22 17:05 | NUR ---
PICC LINE INSERTION 1530- WAS ASKED TO PLACE A PICC LINE FOR 6 WEEKS OF IV ABX. SHERIN SOLIS RN EXAMINED BOTH ARMS. THE RIGHT CEPHALIC VEIN WAS ATTEMPTED 3 TIMES WITHOUT SUCCESS. THE VEIN WAS DIFFICULT TO ACCESS AND ADVANCE THE CATHETER. THE BASILIC VEIN WAS THEN RE- EXAMINED ON THE RIGHT SIDE AND WAS LARGE ENOUGH FOR THE 4 FR PICC LINE ACCORDING TO SITE RITE 8. SHERIN SOLIS RN WAS ABLE TO ACCESS THE BASILIC VEIN ON THE FIRST ATTEMPT. RED, NON-PULSITILE BLOOD RETURNED. THE GUIDEWIRE, INTRODUCER, AND PICC LINE ALL EASILY THREADED UP THE VEIN. 1533- XRAY AT THE BEDSIDE FOR CONFIRMATION. 1605- IMAGING CALLED AND STATED THE XRAY WAS READ. ACCORDING TO THE IMAGING THE PICC LINE NEEDS TO BE RETRACTED 2.5 CM. 1616- PICC LINE RETRACTED 2.5 CM AND REDRESSED WITH A STERILE TECHNIQUE. 1620- REPEAT CHEST XRAY COMPLETED. 1653- DISCUSSED WITH CIARA HEREDIA RN THAT THE PICC LINE HAS BEEN CLEARED FOR USE. REMINDED TO GIVE HEPARIN BEFORE DC. PT PROVIDED HER PICC LINE CARD AND INFECTION PREVENTION INFORMATION. PT THANKFUL FOR HER CARE.
--- NOTE | 2023-05-22 17:13 | NUR ---
IN TO ADMINISTER MEDICATION, SEE MAR. BLOOD RETURN NOTED FROM PICC. FLUSHED WITH 20 ML OF NS FOLLOWED BY HEPARIN FLUSH. YE CAPELLAN IN TO WHEEL PT OUT TO VEHICLE. NO OTHER NEEDS FROM THIS RN.
--- NOTE | 2023-05-26 09:10 | OR ---
[facility] [address], [place] [address] Signed DATE OF OPERATION: 05/21/2023 SURGEON: Robi Perla DPM PREOPERATIVE DIAGNOSES: 1. Diabetes with left foot ulcer. 2. Osteomyelitis, left foot. POSTOPERATIVE DIAGNOSES: 1. Diabetes with left foot ulcer. 2. Osteomyelitis, left foot. ANESTHESIA: MAC with local block left foot. RIVER EXPEDITION GUIDE: Winter Driscoll. SPECIMEN TO PATHOLOGY: None. PROCEDURE: Debridement of ulcer and abscess, left foot. DESCRIPTION OF PROCEDURE: The patient was brought to the operating room and placed on the table in the supine position. Anesthesia Department administered IV sedation after which a local block was given to the left foot using a total of 9 mL 1:1 mixture 2% lidocaine plain and 0.5% ropivacaine plain. The left leg and foot was then prepped and draped in the usual sterile manner and an Esmarch was used for hemostasis. Attention was directed to the dorsal aspect of the left forefoot where an open ulcer is noted at the base of the left 4th digit within the ulcer is necrotic tissue, which appeared to be fascia and tendon type tissue. This was debrided. Attention then directed to the abscess, which was adjacent to the open ulcer. A small incision made to expand the opening of the abscess and a small amount of necrotic fibrous tissue, fascia or tendon noted within this site. Both sites then debrided with a rongeur and curette to remove any unhealthy or necrotic appearing tissue. The surgical sites were then irrigated with copious amounts of normal saline. The ulcer site appeared to extend deep to bone of the 4th metatarsal, however, there was at least a thin layer of soft tissue covering the metatarsal. Electronically Signed By: ROBI PERLA DPM 05/23/23 1631 PATIENT NAME: ROBB LOPEZ OPERATIVE REPORT DATE OF : 85 REPORT #: [id number] PHYSICIAN: ROBI PERLA DPM PCP: NO PRIMARY CARE PHYSICIAN REPORT IS CONFIDENTIAL AND NOT TO BE RELEASED WITHOUT AUTHORIZATION [facility] [address], [place] [address] Signed Surgical sites were then dressed with Adaptic, Betadine-soaked gauze, dry gauze, Flexicon, and Coban for mild compression. INTRAOPERATIVE COMPLICATIONS: None, however, the calcium sulfate antibiotic bead material did not fully solidify, therefore this was applied within the ulcer site and abscess site as a paste to help provide increased antibiotic at the site of infection. ESTIMATED BLOOD LOSS: Less than 10 mL. The patient tolerated the procedure and the anesthesia well and left the operating room with vital signs stable and vascular status intact to the left foot as evidenced by hyperemia with removal of the Esmarch. CAMI Hill/MODL /[id number] Copies: ~ Electronically Signed By: ROBI PERLA DPM 05/23/23 1631 PATIENT NAME: ROBB LOPEZ OPERATIVE REPORT DATE OF : [birth year] REPORT #: [id number] PHYSICIAN: ROBI PERLA DPM PCP: NO PRIMARY CARE PHYSICIAN REPORT IS CONFIDENTIAL AND NOT TO BE RELEASED WITHOUT AUTHORIZATION
== END 2023-05-22 17:15 | disposition home or self-care (01) | DRG 623 ==
LOC: ED 08:12 → MS 11:24
PROVIDERS: Internal Medicine; ADMIT Family Medicine; ATTEND Family Medicine
PROC: 02H633Z Insertion of Infusion Device into Right Atrium, Percutaneous Approach (ICD-10-PCS; principal; 2023-05-20)
PROC: 0LBW0ZZ Excision of Left Foot Tendon, Open Approach (ICD-10-PCS; 2023-05-21)
DX: E10.69 Type 1 diabetes mellitus with other specified complication (principal); L03.116 Cellulitis of left lower limb; M86.172 Other acute osteomyelitis, left ankle and foot; E10.621 Type 1 diabetes mellitus with foot ulcer; B95.2 Enterococcus as the cause of diseases classified elsewhere; L97.529 Non-pressure chronic ulcer of other part of left foot with unspecified severity; E10.65 Type 1 diabetes mellitus with hyperglycemia; R79.89 Other specified abnormal findings of blood chemistry; F17.210 Nicotine dependence, cigarettes, uncomplicated; Z79.2 Long term (current) use of antibiotics; Z79.899 Other long term (current) drug therapy; Z79.4 Long term (current) use of insulin; Z11.52 Encounter for screening for COVID-19
CPT/HCPCS: 01470; 36415; 36569; 71045; 73630; 80053; 82553; 83036; 83605; 83735; 84100; 84703; 85025; 87040; 87070; 87075; 87076; 87186; 87205; 87502; 96365; 96366; 96375; 99284-25; A9270; C1713; C1751; C9803; J0131; J0878; J1100; J1650; J1815; J1885; J1956; J2001; J2405; J2704; J3370; J3475; J3490; J7030; J7121; U0002

== ENCOUNTER 2023-07-09 05:40 | Day surgery (SDC) | payer OTHER ==
[~2023-07-09] VITALS: Ht 165.1 cm; Wt 70.5 kg
--- NOTE | ~2023-07-09 | OR ---
[facility] [address] [facility] [place] [address] Draft DATE OF OPERATION: 07/09/2023 SURGEON: Robi Perla DPM PREOPERATIVE DIAGNOSIS: Diabetic ulcer with osteomyelitis, left foot. POSTOPERATIVE DIAGNOSIS: Diabetic ulcer with osteomyelitis, left foot. TRAVELING AUDITOR SURGEON: Kimberly Sandhu DPM. ANESTHESIA: IV general with local block left foot. INSULATOR HELPER: Kit Cole. SPECIMEN: To pathology bone and soft tissue of the left 4th digit, as well as majority of left 4th metatarsal. Intraoperative cultures also obtained. PROCEDURE: 1. Amputation, left 4th digit. 2. Debridement of ulcer and infected bone, left foot. DESCRIPTION OF PROCEDURE: The patient was brought to the operating room and placed on the table in the supine position. Anesthesia Department administered IV sedation after which a local block was given to the left foot using a total of 12 mL 1:1 mixture 2% lidocaine plain and 0.5% ropivacaine plain. The left leg and foot were then prepped and draped in the usual sterile manner and an Esmarch was used for hemostasis. Attention was initially directed to the left 4th digit where a racquet style incision was made around the base of the toe with the handle of the racquet extending on to the dorsum of the foot. The incision was initially full-thickness deep to bone. Soft tissues then reflected to expose the base of the toe which was then removed in toto. The incision at this time was extended proximal to the base of the left 4th metatarsal, about 8 cm in length total. The incision was full thickness, deepened with dissection PATIENT NAME: ROBB LOPEZ OPERATIVE REPORT DATE OF : [birth year] REPORT #: [id number] PHYSICIAN: ROBI PERLA DPM PCP: NATALIIA BOO MD REPORT IS CONFIDENTIAL AND NOT TO BE RELEASED WITHOUT AUTHORIZATION [facility] [address], [place] [address] Draft to the level of bone of 4th metatarsal, then soft tissues were reflected to expose the 4th metatarsal. MRI had already shown that the bone infection was causing changes to the vast majority of the metatarsal, only a small portion at the base appeared to be unchanged. Therefore, with use of intraoperative fluoroscopy, the level of the amputation was identified leaving a very narrow portion of the base of the metatarsal intact. The remainder of the metatarsal removed in toto and sent for pathology as well. The remaining soft tissues were inspected and debridement performed to any of the soft or necrotic appearing tissue. Only a small amount of necrotic appearing tissue was noted and this was primarily plantar to the metatarsal and at the level of the 4th metatarsophalangeal joint where the original ulcer had been. Once the debridement was performed, the surgical site was irrigated with copious amounts of normal saline. The surgical site then closed using 3-0 nylon monofilament suture. The void of the 4th metatarsal removal had antibiotic beads placed within this prior to closure. Antibiotic beads were utilized throughout the extent of the surgical site prior to closure. The antibiotic beads contain vancomycin and tobramycin. Dressings, dressings applied consisting of Adaptic, Betadine-soaked gauze, dry gauze, Kerlix roll, ABD pad, and Coban for mild compression. INTRAOPERATIVE COMPLICATIONS: None. ESTIMATED BLOOD LOSS: Less than 5 mL. The patient tolerated the procedure and the anesthesia well and left the operating room with vital signs stable and vascular status intact to the left foot as evidenced by hyperemia with removal of the Esmarch. Robi Perla DPM DFB/MODL /[id number] Copies: PATIENT NAME: ROBB LOPEZ NOVEMBER OPERATIVE REPORT DATE OF : [birth year] REPORT #: [id number] PHYSICIAN: ROBI PERLA DPM PCP: NATALIIA BOO MD REPORT IS CONFIDENTIAL AND NOT TO BE RELEASED WITHOUT AUTHORIZATION [facility] [address] [place] [id number] Draft ~ PATIENT NAME: ROBB LOPEZ NOVEMBER OPERATIVE REPORT DATE OF : [birth year] REPORT #: [id number] PHYSICIAN: ROBI PERLA DPM PCP: NATALIIA BOO MD REPORT IS CONFIDENTIAL AND NOT TO BE RELEASED WITHOUT AUTHORIZATION
[~2023-07-09 05:40] MED LIST changes: +CUBICIN RF500 MG IV; +LEVOFLOXAC750 MG/150 IV
[2023-07-09 06:12] VITALS: BP 149/101
[2023-07-09 10:51] VITALS: BP 112/78
--- NOTE | 2023-07-09 11:25 | NUR ---
07/09/23 1125 Borja,Devorah Russell 0840: PATIENT ARRIVED TO PACU ASLEEP WITH O2 MASK ON. 0845: PATIENT AWAKE. DENIES PAIN. VERIFIED WITH DR. POON THAT PATIENT IS TO RECEIVE LEVAQUIN DOSE TODAY. 0857: LEVAQUIN INFUSION STARTED VIA PUMP. PATIENT UPSET THAT SHE HAS TO STAY FOR LENGTH OF ANTIBIOTIC INFUSION. PATIENT EDUCATED ON NEED FOR ANTIBIOTIC DOSE. 0930: DISCHARGE INSTRUCTIONS GIVEN TO PATIENT. 0935: STAND BY ASSIST WHILE PATIENT GOT DRESSED. ANTIBIOTIC STILL INFUSING. PATIENT NOW IN PHASE II. 1025: LEVAQUIN INFUSION COMPLETE. RIGHT PICC FLUSHED WITH NS, THEN FLUSHED WITH HEPARIN. ORANGE CAP PLACED OVER END OF PICC LINE. PATIENT DISCHARGED TO HOME VIA WHEELCHAIR WITH .
--- NOTE | 2023-07-11 12:43 | PATH ---
[facility] [address], [place] [address] Signed SPECIMEN(S): A LEFT FOURTH TOE SPECIMEN SOURCE: A. LEFT FOURTH TOE CLINICAL HISTORY: Osteomyelitis left foot FINAL PATHOLOGIC DIAGNOSIS: A. Left fourth toe, amputation: - Skin, soft tissue and bone with focal ulceration. - All margins free of acute inflammation and necrosis. DDF MICROSCOPIC EXAMINATION: Histologic sections of all submitted blocks are examined by light microscopy. These findings, together with the gross examination, support the pathologic diagnosis. GROSS DESCRIPTION: The specimen, labeled and designated "Glenys, left fourth toe," is received in formalin and consists of tube that measure 4.5 x 1.7 x 1.7 cm. The level of the amputation is within the MTP joint. The bone resection margin is articulated. Dorsal skin shows a pinpoint defect that measures 0.1 cm in diameter. The specimen is perpendicularly sectioned through the pinpoint defect and upon sectioning shows pink-oropeza, slightly soft underlying bone tissue. from the toe, within the container is a metatarsal bone that measures 4.5 x 1.4 x 0.8 cm. Metatarsal head is covered with a fibrous tissue over the cartilage. The resection margin is inked. Specimen is left for decalcification in decal stat prior to processing. Cassette Summary: (A1) toe, perpendicular section and skin resection margin, inked and shave (A2) metatarsal bone resection margin, shave JS (under the direct supervision of a pathologist) The Gross Description was prepared using a voice recognition system. The report was reviewed for accuracy; however, sound-alike word errors, addition and/or deletions may occur. If there is any question about this report, please contact Client Services. PATIENT NAME: ROBB LOPEZ PATHOLOGY DATE OF : 85 REPORT #: [id number] PHYSICIAN: ANABELLA PATHOLOGY PCP: NATALIIA BOO MD REPORT IS CONFIDENTIAL AND NOT TO BE RELEASED WITHOUT AUTHORIZATION [facility] [address] [place] [address] Signed ADDITIONAL NOTES: Immunohistochemical and/or in situ hybridization studies if performed in this case included appropriate positive controls that reacted as expected. This test was developed and its performance characteristics determined by [facility]. It has not been cleared or approved by the U.S. Food and Drug Administration. The FDA has determined that such clearance or approval is not necessary. This test is used for clinical purposes. It should not be regarded as investigational or for research. [facility] is certified under the Clinical Laboratory Improvement Amendments of 1988 (CLIA) as qualified to perform high complexity clinical laboratory testing. PERFORMING LABORATORY: Technical component was performed by [facility], [address] [place] [id number] (CLIA# [id number]). Professional interpretation was performed by [facility], [address] [place] [id number] (CLIA#: [id number]). Diagnostician: Ham Conway DO Pathologist Electronically Signed 07/11/2023 Copies: ~ PATIENT NAME: ROBB LOPEZ PATHOLOGY DATE OF : [birth year] REPORT #: [id number] PHYSICIAN: ANABELLA PATHOLOGY PCP: NATALIIA BOO MD REPORT IS CONFIDENTIAL AND NOT TO BE RELEASED WITHOUT AUTHORIZATION
== END 2023-07-09 10:25 | disposition home or self-care (01) ==
LOC: DS 05:40
PROVIDERS: ATTEND Podiatrist Foot Surgery
PROC: 0Y6W0Z0 Detachment at Left 4th Toe, Complete, Open Approach (ICD-10-PCS; principal; 2023-07-09 07:00)
DX: E10.69 Type 1 diabetes mellitus with other specified complication (principal); M86.172 Other acute osteomyelitis, left ankle and foot; E10.621 Type 1 diabetes mellitus with foot ulcer; L97.524 Non-pressure chronic ulcer of other part of left foot with necrosis of bone
CPT/HCPCS: 01482; 36415; 73620; 73630; 84703; 87070; 87075; 87205; 88305; 88311; C1713; J1100; J1815; J1956; J2001; J2250; J2405; J2704; J2795; J3260; J3370; J7121

== ENCOUNTER 2024-04-30 21:28 | Emergency (ER) | payer OTHER ==
[~2024-04-30] VITALS: Ht 165.1 cm; Wt 69.2 kg
--- OUTSIDE RECORDS SUMMARY | 2024-04-30 21:35 | XMS ---
PreManage Notification: ROBB LOPEZ Security Sustainability Consultant Events No recent Security Events currently on file CRITERIA MET - Group Notification CARE PROVIDERS -, [facility] Dentist: Van Cdl Driver Current [place] PHONE: [phone] -Nia- Dentist: Van Cdl Driver Current [facility] PHONE: [phone] DREW BAUTISTA Physician Billiard Parlor Manager Current PHONE: Unknown GABRIEL LUCERO/[place]: [facility] Health [facility] PHONE: Unknown VIKKI VIRAMONTES [facility] Current PHONE: Unknown [facility]Center: [facility] Current \F\ [facility] PHONE: [phone] Darcie has no Care Guidelines for this patient. Matthew VISIT COUNT (12 MO.) 2 FRAN Alexandre TOTAL 2 NOTE: Visits indicate total known visits. ED/UCC VISIT TRACKING (12 MO.) 04/30/2024 21:29 FRAN [facility] [place] TYPE: Emergency COMPLAINT: - WOUND CHECK FOOT 05/20/2023 08:13 [facility]AN [facility] [place] TYPE: Emergency COMPLAINT: - L FOOT WOUND INPATIENT VISIT TRACKING (12 MO.) 05/20/2023 11:24 FRAN [facility] [place] TYPE: Medical Surgical COMPLAINT: - OSTEOMYELITIS DIAGNOSES: - Cellulitis of left lower limb - Cellulitis of left lower limb - Encounter for screening for COVID-19 - Encounter for screening for COVID-19 - Enterococcus as the cause of diseases classified elsewhere - Enterococcus as the cause of diseases classified elsewhere - exterminator helper termite (current) use of antibiotics - exterminator helper termite (current) use of antibiotics - correction (current) use of insulin - exterminator helper termite (current) use of insulin - Nicotine dependence, cigarettes, uncomplicated - Nicotine dependence, cigarettes, uncomplicated - Non-pressure chronic ulcer of other part of left foot with unspecified severity - Non-pressure chronic ulcer of other part of left foot with unspecified severity - Other acute osteomyelitis, left ankle and foot - Other detention (current) drug therapy - Other detention (current) drug therapy - Other specified abnormal findings of blood chemistry - Other specified abnormal findings of blood chemistry - Type 1 diabetes mellitus with foot ulcer - Type 1 diabetes mellitus with foot ulcer - Type 1 diabetes mellitus with hyperglycemia - Type 1 diabetes mellitus with hyperglycemia - Type 1 diabetes mellitus with other specified complication - Type 1 diabetes mellitus with other specified complication [email or web address]
[2024-04-30 22:24] LABS: BASOPHILS 1.1 % (0-2); EOSINOPHILS 2.9 % (0-6); HEMATOCRIT 30.6 % (35.0-50.0); LYMPHOCYTES 23.8 % (24-44); MCH 25.7 (27-36); MCHC 32.6 g/dl (30-36); MCV 78.9 fl (81-99); MONOCYTES 6.9 % (0-12); NEUTROPHILS 65.3 % (39-80); PLATELET COUNT 317 K/uL (140-440); RBC 3.88 M/ul (4.3-5.7); RDW 15.1 (10.5-15.0)
[2024-04-30] MEDS ORDERED: AMOXICILLIN/CLAVULANATE K 875 MG HOME.PACK PO ONE (22:30)
[2024-04-30] MEDS ORDERED: AMOX TR-K CLV1 EAC1 PO (22:34)
[2024-04-30 22:38] LABS: ALBUMIN 2.7 g/dL (3.4-5.0); ALBUMIN/GLOBULIN RATIO 0.55 (1.1-2.4); ANION GAP 13.7 (7-21); BILIRUBIN, TOTAL 0.2 ng/dL (0.2-1.0); BUN/CREATININE RATIO 22.1 (6.0-28.6); CALCIUM 9.1 mg/dL (8.5-10.1); CREATININE, SERUM 0.95 mg/dL (0.55-1.02); POTASSIUM 4.7 mmol/L (3.5-5.1); PROTEIN, TOTAL 7.6 g/dL (6.4-8.2)
[2024-04-30 22:55] VITALS: BP 100/69
[2024-04-30 23:27] LABS: ERYTHROCYTE SEDIMENTATION RATE 70
== END 2024-04-30 22:55 | disposition home or self-care (01) ==
LOC: ED 21:28
PROVIDERS: Internal Medicine
DX: E10.621 Type 1 diabetes mellitus with foot ulcer (principal); L97.529 Non-pressure chronic ulcer of other part of left foot with unspecified severity; F17.200 Nicotine dependence, unspecified, uncomplicated; Z89.422 Acquired absence of other left toe(s); Z91.018 Allergy to other foods; Z79.4 Long term (current) use of insulin; Z79.899 Other long term (current) drug therapy
CPT/HCPCS: 36415; 73630; 80053; 85025; 85651; 86140; 99283

== ENCOUNTER 2024-07-06 17:13 | Inpatient (IN) | payer OTHER ==
[~2024-07-06] VITALS: Ht 165.1 cm; Wt 70.3 kg
--- OUTSIDE RECORDS SUMMARY | 2024-07-06 17:19 | XMS ---
PreManage Notification: ROBB LOPEZ Security Cafe Helper Events No recent Security Events currently on file CRITERIA MET - Group Notification CARE PROVIDERS -, [facility] Dentist: Electrical Systems Designer Current [place] PHONE: [phone] -Nia- Dentist: Electrical Systems Designer Current [facility] PHONE: [phone] DREW BAUTISTA Physician Care Support Representative Current PHONE: [phone] ST [facility]/[place]: [facility] Current FAMILY PHONE: [phone] GABRIEL LUCERO [facility]/[place]: [facility] COMMUNITY PHONE: Unknown VIKKI VIRAMONTES [facility] Current PHONE: Unknown Darcie has no Care Guidelines for this patient. Matthew VISIT COUNT (12 MO.) 2 FRAN Alexandre TOTAL 2 NOTE: Visits indicate total known visits. ED/UCC VISIT TRACKING (12 MO.) 07/06/2024 17:13 [facility] [place] TYPE: Emergency COMPLAINT: - FOOT PAIN 04/30/2024 21:29 FR[facility] [place] TYPE: Emergency COMPLAINT: - WOUND CHECK FOOT DIAGNOSES: - Acquired absence of other left toe(s) - Allergy to other foods - filbert grower (current) use of insulin - Nicotine dependence, unspecified, uncomplicated - Non-pressure chronic ulcer of other part of left foot with unspecified severity - Other group sales coordinator (current) drug therapy - Other specified soft tissue disorders - Type 1 diabetes mellitus with foot ulcer INPATIENT VISIT TRACKING (12 MO.) No inpatient visits to display in this time frame [email or web address]
[2024-07-06] MEDS ORDERED: INSULIN GL100 UNIT/2 SUB-Q (17:38)
[2024-07-06] MEDS ORDERED: INSULIN LI100 UNIT/2 SUB-Q (17:38)
[2024-07-06] MEDS ORDERED: PIPERACILLIN/TAZOBACTAM 3.375 GM in DEXTROSE 5% 100 ML IV ONE (17:45)
[2024-07-06] MEDS ORDERED: SODIUM CHLORIDE 0.9% 1,000 ML IV ONE (17:45)
[2024-07-06 17:49] LABS: BASOPHILS 0.2 % (0-2); EOSINOPHILS 0.7 % (0-6); HEMATOCRIT 29.5 % (35.0-50.0); HEMOGLOBIN 9.3 g/dL (12.0-18.0); LYMPHOCYTES 6.4 % (24-44); MCH 24.8 (27-36); MCHC 31.5 g/dl (30-36); MCV 78.8 fl (81-99); MONOCYTES 4.8 % (0-12); NEUTROPHILS 87.9 % (39-80); PLATELET COUNT 293 K/uL (140-440); RBC 3.74 M/ul (4.3-5.7); RDW 15.7 (10.5-15.0)
[2024-07-06 18:00] LABS: PARTIAL THROMBOPLASTIN TIME 26.5 Sec (22.9-41.3)
[2024-07-06 18:01] LABS: INR 1.13 (0.80-1.30); PROTIME 13.8 Sec (11.2-14.2)
[2024-07-06 18:08] LABS: LACTIC ACID, BLOOD 1.8 mmol/L (0.4-2.0)
[2024-07-06 18:11] LABS: ALBUMIN 2.2 g/dL (3.4-5.0); ALBUMIN/GLOBULIN RATIO 0.38 (1.1-2.4); ANION GAP 17.5 (7-21); BILIRUBIN, TOTAL 0.2 ng/dL (0.2-1.0); BUN/CREATININE RATIO 9.43 (6.0-28.6); CREATININE, SERUM 1.06 mg/dL (0.55-1.02); POTASSIUM 3.5 mmol/L (3.5-5.1)
[2024-07-06] MEDS ORDERED: ACETAMINOPHEN 500 MG TAB PO ONE (19:15)
[2024-07-06] MEDS ORDERED: DEXTROSE 5% 1,000 ML IV PRN (19:30)
[2024-07-06] MEDS ORDERED: GLUCAGON,HUMAN RECOMBINANT 1 MG/ML VIAL SUB-Q PRN (19:30)
[2024-07-06] MEDS ORDERED: IBLOOD GLUCOSE TEST STRIP 1 EA TEST XX PRN (19:30)
[2024-07-06] MEDS ORDERED: ACETAMINOPHEN 325 MG TAB PO PRN (19:30)
[2024-07-06] MEDS ORDERED: DEXTROSE 50% 50 ML SYR IV PRN ×2 (19:30)
[2024-07-06] MEDS ORDERED: ondansetron HCL 4 MG/2 ML VIAL IV PRN (19:30)
[2024-07-06] MEDS ORDERED: LACTATED RINGER'S 1,000 ML IV SCH (19:30)
[2024-07-06] MEDS ORDERED: bisacodyL 10 MG SUPP PR PRN (19:30)
[2024-07-06 20:31] VITALS: BP 113/71
--- NOTE | 2024-07-06 20:35 | NUR ---
pt ARRIVES TO [place] VIA STRETCHER WITH IUSS ACOUSTIC ANALYST. AMBULATORY TO HOSPITAL BED INDEPENDENTLY. MD IN pt ROOM ASSESSING pt. ORIENTATION TO ROOM PROVIDED. IV SITE FLUSHED WNL, IVF INFUSING ORDERED. pt REPORTS PAIN 8/10 IN LEFT FOOT. MD TO ORDER ADDITIONAL PAIN MEDICATIONS, ANTIBIOTICS. REPORT GIVEN TO PRIMARY RN DARRIUS. pt'S JAYE ALSO IN ROOM.
[2024-07-06] MEDS ORDERED: HEParin SOD (PORCINE) 5,000 UNIT/ML SDV SUB-Q SCH (21:00)
[2024-07-06] MEDS ORDERED: MELATONIN 3 MG TAB PO PRN (21:00)
[2024-07-06] MEDS ORDERED: IBLOOD GLUCOSE TEST STRIP 1 EA TEST VI SCH (21:00)
[2024-07-06] MEDS ORDERED: INSULIN GLARGINE-YFGN 100 UNIT/ML ML SUB-Q SCH (21:00)
[2024-07-06] MEDS ORDERED: INSULIN LISPRO 100 UNIT/ML ML SUB-Q SCH (21:00)
--- NOTE | 2024-07-06 21:00 | NUR ---
PT BLOOD SUGAR 467. MD ON FLOOR AND NOTIFIED. NEW ORDERS RECEIVED.
[2024-07-06] MEDS ORDERED: CEFEPIME HCL/D5W 2 GM/100 ML PIGGYBACK IV SCH (21:06)
[2024-07-06] MEDS ORDERED: HYDROCODONE/ACETA 5/325 TAB PO PRN (21:15)
[2024-07-06] MEDS ORDERED: HYDROmorphone HCL 1 MG/ML SYR IV PRN (21:15)
[2024-07-06] MEDS ORDERED: metroNIDAZOLE/SODIUM CHLORIDE 500 MG/100 ML PIGGYBACK IV SCH (22:00)
--- NOTE | 2024-07-06 22:10 | NUR ---
ADMISSION ASSESSMENT COMPLETE. SCHEDULED MEDS ADMIN PER EMAR. PT REPORTS LEFT FOOT PAIN 02/27. PRN FOR PAIN ADMIN PER EMAR. LLE REDNESS OUTLINED AND PICS PLACED IN CHART. LLE ELEVATED ON PILLOW. SANDWICH BOX PROVIDED. PT ORIENTED TO ROOM AND NURSE CALL LIGHT. NO FURTHER NEEDS AT THIS TIME. CALL LIGHT IN REACH.
--- NOTE | 2024-07-06 22:50 | NUR ---
IV PUMP ALARMING. ISSUE RESOLVED. IV ABX INFUSING PER ORDER. MRI SCREENING COMPLETE. VISITORS AT BEDSIDE.
[2024-07-07] VITALS (10 sets, daily range): BP systolic 107–147; BP diastolic 72–94
--- NOTE | 2024-07-07 00:28 | NUR ---
THIS RN ASSUMING CARE OF PATIENT. PATIENT RESTING IN BED ON BACK WITH VISITOR AT BEDSIDE. PATIENT DENIES FURTHER NEEDS AT THIS TIME. CALL LIGHT IN REACH.
--- NOTE | 2024-07-07 02:15 | NUR ---
PATIENT RESTING IN BED ON BACK. RESPIRATIONS EVEN AND UNLABORED. CALL LIGHT IN REACH.
--- NOTE | 2024-07-07 04:09 | NUR ---
PATIENT RESTING IN BED ON BACK WITH EYES CLOSED. RESPIRATIONS EVEN AND UNLABORED. CALL LIGHT IN REACH.
[2024-07-07 05:50] LABS: BASOPHILS 0.5 % (0-2); EOSINOPHILS 2.3 % (0-6); HEMATOCRIT 24.7 % (35.0-50.0); LYMPHOCYTES 9.8 % (24-44); MCH 25.2 (27-36); MCHC 32.3 g/dl (30-36); MONOCYTES 3.1 % (0-12); NEUTROPHILS 84.3 % (39-80); PLATELET COUNT 265 K/uL (140-440); RBC 3.17 M/ul (4.3-5.7); RDW 15.6 (10.5-15.0)
--- NOTE | 2024-07-07 06:09 | NUR ---
PATIENT RESTING IN BED. VS AND I&Os OBTAINED AND RECORDED. NEW BAG IV ABX INFUSING PER ORDER. PATIENT REPORTS 4/10 HEADACHE. PRN HEADACHE MEDICATION ADMINISTERED. PATIENT LLE REDNESS REMAINS WITHIN THE OUTLINE. PATIENT STATES SHE THINKS HER LLE REMAINS THE SAME THE BEGINNING OF SHIFT. NO FURTHER NEEDS AT THIS TIME. CALL LIGHT IN REACH.
[2024-07-07 06:11] LABS: ANION GAP 12.4 (7-21); CALCIUM 8.7 mg/dL (8.5-10.1); CREATININE, SERUM 0.75 mg/dL (0.55-1.02); MAGNESIUM 1.7 mg/dL (1.8-2.4); POTASSIUM 3.4 mmol/L (3.5-5.1)
--- NOTE | 2024-07-07 07:22 | NUR ---
VERBAL REPORT RECEIVED FROM YURY SILVERIO. PT IS AWAKE AND ALERT, VISITOR X1 IN ROOM.
[2024-07-07] MEDS ORDERED: INSULIN LISPRO 100 UNIT/ML ML SUB-Q SCH (08:00)
[2024-07-07] MEDS ORDERED: MAGNESIUM SULFATE 2 GM/50 ML BAG IV ONE (08:00)
[2024-07-07] MEDS ORDERED: POTASSIUM CHLORIDE 10 MEQ TABCR PO ONE (08:00)
[2024-07-07] MEDS ORDERED: CEFEPIME HCL/D5W 1 GM/100 ML PIGGYBACK IV SCH (08:29)
--- NOTE | 2024-07-07 08:30 | NUR ---
PATIENT IN BED AT THIS TIME. BREAD ICER WENT INTO PATIENTS ROOM FOR HOURLY ROUNDS. CALL LIGHT WITHIN REACH, NO FURTHER NEEDS AT THIS TIME.
--- NOTE | 2024-07-07 09:22 | NUR ---
ALERT AND ORIENTED IN BED. STATES SHE LIVES IN HOUSE WITH SPOUSE AND SON. SHE HAS NO DME. SHE DRIVES AT BASELINE. SHE STATES FINANCIALLY NO ISSUES PAYING FOR UTILITIES. NO ISSUES OBTAINING FOOD OR MEDICATIONS. NO KNOWN CM NEEDS AT THIS TIME.
--- NOTE | 2024-07-07 10:27 | NUR ---
PATIENT IN BED AT THIS TIME. TAP BUILDER CHARTED VITALS AND I&O'S. CALL LIGHT WITHIN REACH, NO FURTHER NEEDS AT THIS TIME.
--- NOTE | 2024-07-07 10:42 | NUR ---
PT RESTS IN BED WITH VISITORS X4 IN ROOM. LEFT FOOT ELEVATED ON PILLOW. WOUND TO LEFT LATERAL FOOT IS OPEN TO AIR, WOUND BASE IS DRY AND BLACK, SCAN AMOUNT OF DRAINAGE NOTED. PERIWOUND SKIN IS INTACT, RED AND SWOLLEN. WOUND OVER LEFT 5TH METATARSAL HEAD, PLANTAR SURFACE IS OPEN TO AIR, WOUND BASE IS YELLOW AND MOIST WITH SCANT AMOUNT OF DRAINAGE. REDNESS OF LLE IS WITHIN THE MARKED BORDERS. MRI OF LLE SCHEDULED FOR 1100 TODAY, DISCUSSED WITH PT.
--- NOTE | 2024-07-07 10:56 | NUR ---
VASE WET-TO-DRY DRESSING APPLIED TO FOOT WOUNDS X2 TO COVER AND TO CONTORL DRAINAGE AND ODOR. PT TOLERATED WELL.
--- NOTE | 2024-07-07 11:07 | NUR ---
VISITED DURING SPIRITUAL CARE ROUNDS. PT SUPPORTED BY COMPANIONS IN ROOM. ALL DENY IMMEDIATE NEEDS, NO OVERT SIGNS OF ANXIETY. USER EXPERIENCE LEAD PROVIDED SUPPORTIVE PRESENCE, HOSPITALITY, PRAYER, FACILITATED INTERACTION WITH THERAPY ANIMAL. PT EXPRESSED GRATITUDE.
--- NOTE | 2024-07-07 11:38 | NUR ---
UR CLINICAL REVIEW: [facility] CRITER[facility] FOR FOOT:SURGICAL WOUND CARE [facility] 07/06/24 @ 1926 ORDER MATCHES REG CLINICALS FAXED FOR AUTH REVIEW DISCHARGE TO HOME WHEN STABLE. AWAITING FURTHER CONSULTS 07/09/24
[2024-07-07] MEDS ORDERED: PHARMACY RENAL DOSE ADJUSTMENT 1 DOSE MISC PO SCH (12:00)
--- NOTE | 2024-07-07 14:48 | NUR ---
PT LYING IN BED WITH EYES OPEN. PT FAMILY MEMBER AT THE BEDSIDE. PT STATED THEY JUST WOKE UP FROM A NAP. ORAL TEMPERATURE RECORDED AT 100.0 DEGREES FAHRENHEIT. YURY TIJERINA NOTIFIED. PT STATED NO FURTHER NEEDS AT THIS TIME.
--- NOTE | 2024-07-07 15:50 | NUR ---
LR INFUSION STOPPED ORDERED.
--- NOTE | 2024-07-07 17:32 | NUR ---
medications reconciled
--- NOTE | 2024-07-07 17:46 | NUR ---
DRESSING TO LEFT FOOT REMOVED BY DR. POON FOR EVALUATION. NEW VASE WET-TO-DRY DRESSING APPLIED. PT TOLERATED WELL.
--- NOTE | 2024-07-07 19:29 | NUR ---
REPORT RECIEVED FROM DAY SHIFT RN. PATIENT RESTING IN BED. DENIES NEEDS AT THIS TIME. CALL LIGHT IN REACH.
--- NOTE | 2024-07-07 20:55 | NUR ---
PATIENT RESTING IN BED. VS, I&Os AND BS OBTAINED AND RECORDED. SCHEDULED MEDICATION AND ABX INFUSING PER ORDER. ASSESSMENT COMPLETE. PATIENT REPORT 10/28 HEADACHE. PRN PAIN MEDICATION ADMINSITERED PER PATINET REQUEST. IV FLUSHES WNL. FRESH ICE WATER PROVIDED. PATIENT DENIES FURTHER NEEDS. CALL LIGHT IN REACH.
--- NOTE | 2024-07-07 22:15 | NUR ---
NEW BAG SCHEDULED IV ABX INFUSING PER ORDER. PATIENT LLE DRESSING C/D/I. PATIENT RESTING WITH EYES CLOSED. RR EVEN AND UNLABORED. CALL LIGHT IN REACH.
[2024-07-08] VITALS (10 sets, daily range): BP systolic 118–171; BP diastolic 69–94
--- NOTE | 2024-07-08 01:51 | NUR ---
PATIENT RESTING IN BED. WARM BLANKET PROVIDED. SCHEDULED IV ABX INFUSING PER ORDER. NO FURTHER NEEDS. CALL LIGHT IN REACH.
--- NOTE | 2024-07-08 05:39 | NUR ---
PATIENT RESTING IN BED. VS AND I&Os OBTAINED AND RECORDED. NEW BAG IV ABX INFUSING PER ORDER. PATIENT REPORTS THE ONLY PAIN SHE IS HAVING IS HEADACHE PAIN. DENIES FURTHER NEEDS. LLE DRESSING C/D/I. REDNESS REMAINS WITHIN THE OUTLINE. CALL LIGHT IN REACH.
[2024-07-08 05:52] LABS: ANION GAP 15.1 (7-21); BUN/CREATININE RATIO 17.85 (6.0-28.6); CALCIUM 8.2 mg/dL (8.5-10.1); CREATININE, SERUM 0.56 mg/dL (0.55-1.02); POTASSIUM 4.1 mmol/L (3.5-5.1)
[2024-07-08 06:25] LABS: BASOPHILS 0.3 % (0-2); EOSINOPHILS 2.7 % (0-6); HEMATOCRIT 26.9 % (35.0-50.0); HEMOGLOBIN 8.7 g/dL (12.0-18.0); LYMPHOCYTES 13.7 % (24-44); MCH 25.4 (27-36); MCHC 32.2 g/dl (30-36); MCV 78.8 fl (81-99); MONOCYTES 4.4 % (0-12); NEUTROPHILS 78.9 % (39-80); PLATELET COUNT 308 K/uL (140-440); RBC 3.42 M/ul (4.3-5.7); RDW 15.9 (10.5-15.0)
--- NOTE | 2024-07-08 07:30 | NUR ---
REPORT REC'D FROM CASS COTTON. PT RESTING QUIETLY IN BED.
--- NOTE | 2024-07-08 09:02 | NUR ---
Patient was resting in bed with family in room. They reported feeling nauseas. YURY Anne was notified.
--- NOTE | 2024-07-08 09:36 | NUR ---
RN IN ROOM TO ADMINISTER HEPARIN FOR PRIMARY RN. PT RESTING IN BED. CONVERSATION BETWEEN DAUGHTER AND PT OVERHEARD ABOUT VISITORS BRINGING IN ALEVE AND SOMETHING ELSE (UNAUDIBLE). PT QUICKLY STOPPED DAUGHTER FROM TALKING FURTHER TO NOT LET ME HEAR. PT INFORMED BY THIS RN THAT TAKING MEDICATIONS NOT PROVIDED BY STAFF IS AGAINST POLICY AND A SAFETY CONCERN FOR HER. PT DEFENSIVE AND APPART BY BEHAVIOR THAT SHE KNEW SHE WAS NOT SUPPOSED TO BE TAKING MEDS FROM HOME. STAINED GLASS INSTALLER AND PRIMARY RN NOTIFIED.
--- NOTE | 2024-07-08 11:01 | NUR ---
Patient reported bathroom assistance. IV line was wrapped around the bedframe, YURY Anne informed.
--- NOTE | 2024-07-08 12:57 | NUR ---
Spoke with Savannah. She states concern of losing her job. She is requesting a letter stating how long she has been here and why. She would like this emailed to her boss so he can start her [facility] paperwork. We discussed I can print the consult note from Dr. Matos and send if she wants it to go immediately. It will have all the information she is requesting. It is her medical record and she will need to agree for the medical record to be sent as it is personal information. She agrees and asks it to be emailed as soon as possible. I had Savannah sign a SYED and had her read the consult note from Dr. Matos she request I email reza. SYED and consult note emailed to [email or web address].
--- NOTE | 2024-07-08 12:58 | NUR ---
DISCUSSED WITH PATIENT TAKING HOME MEDICATIONS, SPECIFICALLY ALLEVE IT HAD BEEN REPORTED SHE POSSIBLY TOOK THIS EARLIER TODAY. PT DENIES SHE HAD TAKEN ANY HOME MEDICATIONS. RN EXPLAINED RISKS ASSOCIATED WITH TAKING HOME MEDICATIONS RELATED TO BEING OVERMEDICATED AND INTERFERING WITH SURGERY. PT VERBALIZED UNDERSTANDING. DR. DAVIDSON NOTIFIED, DID NOT FEEL THIS WOULD AFFECT SURGERY PLANNED FOR AM.
--- NOTE | 2024-07-08 13:00 | NUR ---
PT VOMITING WHEN RN ENTERED ROOM. OFFERED ANTIEMETIC. PT ACCEPTED AND MEDICATED WITH 4MG ZOFRAN IV.
[2024-07-08] MEDS ORDERED: TRANEXAMIC ACID 2,000 MG in SODIUM CHLORIDE 0.9% 100 ML IV SCH (14:04)
--- NOTE | 2024-07-08 14:04 | NUR ---
UR CLINICAL REVIEW: [facility] CRITERIA FOR FOOT:SURGICAL WOUND CARE, VARIANCE FOR GL DAY 1 ENTERED [facility] 07/06/24 @ 1926 ORDER MATCHES REG CLINICALS FAXED FOR AUTH REVIEW DISCHARGE TO HOME WHEN STABLE. BKA TO BE COMPLETED 07/09/24 07/11/24
--- NOTE | 2024-07-08 14:08 | NUR ---
PT NOT AVAILABLE FOR VISIT. PROVIDED PRAYER.
--- NOTE | 2024-07-08 15:35 | NUR ---
Patient got up and showered. Left lower leg wrapped to keep dressing dry. Bed linens changed. Reported feeling nauseas. YURY Anne notified.
[2024-07-08] MEDS ORDERED: LORazepam 2 MG/ML VIAL IV PRN (17:15)
[2024-07-08] MEDS ORDERED: FAMOTIDINE 20 MG/ 2 ML VIAL IV SCH (17:15)
--- NOTE | 2024-07-08 18:55 | NUR ---
PT WITH MULTIPLE C/O BEGINNING AT 1650. PT NOTED TO HAVE VOMITING ON HOURLY ROUNDS AND CONTINUES TO C/O HEADACHE, SHE ALSO STATES SHE IS ALTERNATING WARM AND COLD, FEELS THAT IT IS POSSIBLY A MIGRAINE. PT OFFERED PAIN MEDICATIONS, PATIENT DECLINES. SHE STATES SHE DOES NOT KNOW WHAT HELPS HER, BUT USE TO TAKE MIDRIN YEARS AGO. PT AGREEABLE TO TYLENOL. PT OFFERED ZOFRAN FOR VOMITING, BUT STATES THE ZOFRAN DOES NOT HELP WITH NAUSEA/VOMITING. RN SPOKE WITH DR. TAMEZ AND ORDERS REC'D FOR PEPCID AND IV ATIVAN. IV RESITED R/T INFILTRATION, IV MEDICATIONS PROVIDED. PT PROVIDED WITH WARM PACK TO L HAND AND ICE PACK FOR HEADACHE. FOLLOW UP AT 1845 PATIENT RESTING QUIETLY WITH FAMILY AT BEDSIDE.
--- NOTE | 2024-07-08 19:50 | NUR ---
REPORT RECIEVED FROM DAY SHIFT RN. PATIENT RESTING IN BED. DENIES NEEDS AT THIS TIME. CALL LIGHT IN REACH.
--- NOTE | 2024-07-08 20:12 | NUR ---
PATIENT RESTING IN BED. VS AND I&Os OBTAINED AND RECORDED. SCHEDULED IV ABX INFUSING PER ORDER. IV FLUSHES WNL. PATIENT DENIES NEEDS AT THIS TIME. CALL LIGHT IN REACH.
[2024-07-08] MEDS ORDERED: INSULIN GLARGINE-YFGN 100 UNIT/ML ML SUB-Q SCH (21:00)
--- NOTE | 2024-07-08 22:11 | NUR ---
PATIENT RESTING IN BED. SCHEDULED MEDICATION ADMINSITERED. IV ABX INFUSING PER ORDER. LLE DRESSING C/D/I. NO FURTHER NEEDS AT THIS TIME. CALL LIGHT IN REACH.
--- NOTE | 2024-07-08 22:47 | NUR ---
IV ALARMING, ANTIBIOTIC COMPLETE. SCHEDULED ANTIBOTIC CONTINUES. IV SITE WNL. PT MOSTLY AWAKE WITH PHONE VIDEO PLAYING. FRIEND/FAMILY MEMBER IN CHAIR AT BEDSIDE.
--- NOTE | 2024-07-08 23:18 | NUR ---
BLOOD SUGAR CHECKS CHANGED TO Q6 DUE TO NPO AFTER MIDNIGHT.
--- NOTE | 2024-07-08 23:31 | NUR ---
PATIENT RESTING IN BED ON LEFT SIDE WITH EYES CLOSED. RESPIRATIONS EVEN AND UNLABORED. CALL LIGHT IN REACH.
--- NOTE | 2024-07-08 23:56 | NUR ---
MD TAMEZ ON FLOOR. THIS RN DISCUSSED PATIENT NOT HAVING FLUID AND BEING NPO AT MIDNIGHT. NEW ORDERS RECIEVED. VERIFIED USING REPEAT BACK METHOD.
[2024-07-09] VITALS (8 sets, daily range): BP systolic 139–154; BP diastolic 80–89
--- NOTE | 2024-07-09 00:01 | NUR ---
PATIENT NPO AT THIS TIME. FOOD AND DRINKS REMOVED FROM BEDSIDE TABLE.
--- NOTE | 2024-07-09 00:16 | NUR ---
SCHEDULED IV FLUIDS INFUSING PER ORDER. NO FURTHER NEEDS. CALL LIGHT IN REACH.
[2024-07-09] MEDS ORDERED: IBLOOD GLUCOSE TEST STRIP 1 EA TEST VI SCH ×2 (02:00→17:15)
--- NOTE | 2024-07-09 02:00 | NUR ---
PATIENT RESTING IN BED. SCHEDULED BS CHECK OBTAINED AND RECORDED. SCHEDULED IV ABX INFUSING PER ORDER. PATIENT VOICED CONCERNS ABOUT NOT BEING ON IV FLUID DURING THE DAY AND WAS GLAD SHE WAS ORDERED THEM AGAIN. PATIENT ALSO STATING SHE IS HUNGRY AND HOPES SHE CAN EAT BEFORE DINNER TONIGHT NIGHT. FOUL ODER COMING FROM LLE. LLE DRESSING C/D/I. NO FURTHER NEEDS AT THIS TIME. CALL LIGHT IN REACH. WARM BLANKET PROVIDED.
[2024-07-09 05:40] LABS: BASOPHILS 0.8 % (0-2); EOSINOPHILS 2.7 % (0-6); HEMATOCRIT 27.2 % (35.0-50.0); HEMOGLOBIN 8.8 g/dL (12.0-18.0); LYMPHOCYTES 18.2 % (24-44); MCH 25.3 (27-36); MCHC 32.5 g/dl (30-36); MCV 77.8 fl (81-99); MONOCYTES 6.1 % (0-12); NEUTROPHILS 72.2 % (39-80); PLATELET COUNT 358 K/uL (140-440); RBC 3.49 M/ul (4.3-5.7); RDW 15.8 (10.5-15.0)
[2024-07-09 06:03] LABS: ANION GAP 13.6 (7-21); BUN/CREATININE RATIO 13.11 (6.0-28.6); CALCIUM 8.4 mg/dL (8.5-10.1); CREATININE, SERUM 0.61 mg/dL (0.55-1.02); MAGNESIUM 1.8 mg/dL (1.8-2.4); POTASSIUM 3.6 mmol/L (3.5-5.1)
[2024-07-09] MEDS ORDERED: fentaNYL citrate 100 MCG/2 ML VIAL ONE (06:09)
[2024-07-09] MEDS ORDERED: FAMOTIDINE 20 MG/ 2 ML VIAL ONE (06:09)
[2024-07-09] MEDS ORDERED: LACTATED RINGER'S 1,000 ML IV ONE (06:09)
[2024-07-09] MEDS ORDERED: KETAMINE in NS 50 MG/5 ML SYR ONE (06:09)
[2024-07-09] MEDS ORDERED: MIDAZOLAM HCL 2 MG/2 ML VIAL ONE (06:09)
[2024-07-09] MEDS ORDERED: METOCLOPRAMIDE HCL 10 MG/2 ML SDV ONE (06:09)
[2024-07-09] MEDS ORDERED: ondansetron HCL 4 MG/2 ML VIAL ONE (06:09)
[2024-07-09] MEDS ORDERED: propofoL 200 MG/20 ML VIAL ONE (06:09)
[2024-07-09] MEDS ORDERED: KETOROLAC TROMETHAMINE 30 MG/ML VIAL ONE (06:09)
[2024-07-09] MEDS ORDERED: DEXAMETHASONE SOD PHOS 4 MG/ML VIAL ONE (06:09)
[2024-07-09] MEDS ORDERED: TRANEXAMIC ACID IN NACL,ISO-OS 1,000 MG/100 ML PIGGYBACK IV SCH ×2 (07:00→12:47)
[2024-07-09] MEDS ORDERED: TRANEXAMIC ACID 2,000 MG in SODIUM CHLORIDE 0.9% 100 ML IV SCH (07:00)
[2024-07-09] MEDS ORDERED: PROCHLORPERAZINE EDISYLATE 10 MG/2 ML VIAL IV PRN ×2 (08:00→11:30)
--- NOTE | 2024-07-09 08:30 | NUR ---
Patient awake, alert and oriented x3. Patient sitting up dry heaving. Patient reluctant to take any medication as she reports "they all make me sick". Updated Dr. Sinha as patient initially declined to take scheduled antibiotics. New order placed for Compazine by provider. Admin compozine 5mg iv and ativan 0.5mg iv for n/v. Patient updated regarding plan of care for surgery this morning.
[2024-07-09] MEDS ORDERED: BUPIVACAINE HCL 0.5% 30 ML VIAL ONE (09:42)
[2024-07-09] MEDS ORDERED: LIDOCAINE HCL 2% 5 ML SDV ONE (09:46)
[2024-07-09] MEDS ORDERED: droPERidol 5 MG/2 ML VIAL ONE (09:48)
--- NOTE | 2024-07-09 10:40 | NUR ---
Pt gone for surgery.
--- NOTE | 2024-07-09 10:41 | NUR ---
Pre-surgery HIBI cleanse done at 0815. Patient was extremely nauseas. YURY Moran administered medicine. They were taken back at 1000. Family chose to wait in patient's room.
[2024-07-09] MEDS ORDERED: IBLOOD GLUCOSE TEST STRIP 1 EA TEST VI PRN (11:30)
[2024-07-09] MEDS ORDERED: droPERidol 5 MG/2 ML VIAL IV PRN (11:30)
[2024-07-09] MEDS ORDERED: fentaNYL citrate 50 MCG/ML SDV IV PRN (11:30)
[2024-07-09] MEDS ORDERED: ondansetron HCL 4 MG/2 ML VIAL IV PRN (11:30)
[2024-07-09] MEDS ORDERED: MORPHINE SULFATE 10 MG/ML VIAL IV PRN (11:30)
[2024-07-09] MEDS ORDERED: NALOXONE HCL 0.4 MG SYR IV PRN (11:30)
[2024-07-09] MEDS ORDERED: METOCLOPRAMIDE HCL 10 MG/2 ML SDV IV PRN (11:30)
--- NOTE | 2024-07-09 11:43 | NUR ---
PT NOT AVAILABLE FOR VISIT. PROVIDED PRAYER.
--- NOTE | 2024-07-09 12:18 | NUR ---
07/09/24 1218 Ania Laura 1141- PT ARRIVES TO THE PACU WITH AN ORAL AND NASAL AIRWAY IN PLACE AND 10L OF O2 VIA MASK. BREATHING IS EVEN AND UNLABORED. PT IS NON REACTIVE TO TACTILE AND VERBAL STIMULI. ABDOMEN IS SOFT AND NON DISTENDED. SURGICAL SITE OF LEFT BKA IS CDI. LR INFUSING IN R FOREARM. ALL MONITORS PUT IN PLACE AND VSS. CBG IS 158. 1158- PT WAKES TO TACTILE STIMULI. PT IS ABLE TO FOLLOW DIRECTIONS TO OPEN HER MOUTH AND ORAL AND NASAL AIRWAY ARE REMOVED AND O2 TURNED OFF AND REMOVED. PT LIFTING HER HEAD OFF OF HER PILLOW AND DENIES PAIN AND NAUSEA. PT RESTING IN BED AND EASILY FALLS BACK TO SLEEP. WILL CONTINUE TO MONITOR. 1202- O2 SATS DECREASE TO 88%. PT PUT ON NC WITH 2L OF O2. O2 SATS INCREASE TO MID 90S. PT ENCOURAGED TO COUGH AND DEEP BREATHE. PT EASILY FALLS BACK TO SLEEP WITH NO APPARENT DISTRESS.
[2024-07-09] MEDS ORDERED: KETOROLAC TROMETHAMINE 30 MG/ML VIAL IV PRN (12:30)
[2024-07-09] MEDS ORDERED: OXYCODONE HCL 5 MG TAB PO PRN (12:30)
--- NOTE | 2024-07-09 12:46 | NUR ---
Patient arrived back to the medical floor. Patient is drowsy, she easily arouses to verbal stimuli. Patient denies pain. IV fluids restarted per order. Left leg elevated, rigid dressing intact. Dressing to left stump is CDI. Skin above dressing is warm to touch, cap refill less than three seconds. Vital signs stable, sp02 93% on 2L oxygen per nc, respirations non labored. Bed alarm intact. Family at bedside. Education provided to patient regarding fall prevention, she reports her understanding. Pt received spinal per report, appears to be resolved as pt reports full sensation to touch. Bed alarm intact.
--- NOTE | 2024-07-09 13:51 | NUR ---
Patient awake, eating lunch at this time, no acute distress. Patient reports she is starting to have increased pressure at left leg stump site. Dressing remains CDI to stump. Patient offered pain medication, she declined. Family remains at bedside. Encouraged patient to call staff is she has needs, call light within reach.
--- NOTE | 2024-07-09 14:45 | NUR ---
PATIENT C/O PAIN 11/27. PRN ADMINSTERED SEE MAR. FAMILY AT BEDSIDE, CALL LIGHT WITHIN REACH.
[2024-07-09] MEDS ORDERED: GABAPENTIN 300 MG CAP PO SCH (15:00)
[2024-07-09] MEDS ORDERED: POLYETHYLENE GLYCOL 3350 1 PACKET PO ONE (15:45)
--- NOTE | 2024-07-09 16:54 | NUR ---
Admin dilaudid 1mg iv and oxycodone 10mg po at this time for reports of 8/10 left stump pain.
--- NOTE | 2024-07-09 18:46 | NUR ---
BRIEF CHANGED D/T INCONTINENCE. PATIENT IS ON HER MENSES, NOTABLE BLEEDING FROM VAGINA. PATIENT DENIES FURTHER NEEDS.
--- NOTE | 2024-07-09 19:18 | NUR ---
GOT REPORT FROM DAY SHIFT NURSE. PATIENT CURRENTLY ON PHONE BUT GETS OFF WHEN GOING INTO ROOM. PATIENT HAS DRESSING ON LEFT LEG, C/D/I. ASLEEP ON COUCH. DENIES ANY CARES AT THIS TIME. PATIENT HAS PUREWICK IN PLACE.
--- NOTE | 2024-07-09 20:04 | NUR ---
PATIENT ANTIBIOTIC STARTED. FRESH WATER GIVEN. PAIN IS CONTROLLED RIGHT NOW AT A 4 BUT SHE WOULD LIKE MORE ORAL MEDICATIONS WHEN DUE IN ABOUT 20 MINUTES.
--- NOTE | 2024-07-09 20:55 | NUR ---
ACCUCHECK COMPLETE AND CHARTED, PRIMARY RN AWARE. ROOM TIDED AND pt INTERACTIVE WITH CARE AND PLEASANT AT THIS TIME.
[2024-07-09] MEDS ORDERED: INSULIN GLARGINE-YFGN 100 UNIT/ML ML SUB-Q SCH (21:00)
--- NOTE | 2024-07-09 21:05 | NUR ---
PATIENT GIVEN MEDICATIONS AND PAIN MEDICATIONS. PATIENT ROOM CLEANED UP BY CHARGE NURSE WHO WAS IN ROOM WITH THIS NURSE. PATIENT HAS IV ANTIBIOTICS RUNNING WELL. PATIENT HAS FAN ON AT BEDSIDE. PATIENT GIVEN FRESH ICE WATER.
--- NOTE | 2024-07-09 22:13 | NUR ---
WATCH INSPECTOR FINAL MOVEMENT OBTAINED VITALS. PT STATES NO NEEDS AT THIS TIME. CALL LIGHT WITHIN REACH.
--- NOTE | 2024-07-09 23:41 | NUR ---
PATIENT GOING IN AN OUT OF RESTING. PATIENT DENIES ANY NEEDS AT THIS TIME.
[2024-07-09] MEDS ORDERED: LACTATED RINGER'S 1,000 ML IV SCH (23:45)
[2024-07-10] VITALS (10 sets, daily range): BP systolic 105–173; BP diastolic 74–93
--- NOTE | 2024-07-10 00:17 | NUR ---
Pt report received from YURY Mcbride.
--- NOTE | 2024-07-10 01:45 | NUR ---
In with pt in response to request for pain medication. Pt is A&O, resting in bed, RLE elevated on pillows and boot is secure. Side rails up x4. Pt reports pain is 5 out of 10 in the stump of the RLE, states she feels like the boot is what is hurting. Assessed the boot at this time and it is noted to be properly secured. IV site is patent, flushed with 10ml NS, no redness, swelling, leaking noted, pt has no c/o burning/stinging, or pain at site. 1mg hydromorphone administered slow IVP, then IV abx started in IVP per emar. Pt denies further needs at this time. Television on, s/o asleep on couch, call light in reach.
[2024-07-10 05:25] LABS: BASOPHILS 0.6 % (0-2); EOSINOPHILS 1.2 % (0-6); HEMATOCRIT 26.5 % (35.0-50.0); HEMOGLOBIN 8.6 g/dL (12.0-18.0); LYMPHOCYTES 18.8 % (24-44); MCH 25.4 (27-36); MCHC 32.3 g/dl (30-36); MCV 78.5 fl (81-99); MONOCYTES 9.1 % (0-12); NEUTROPHILS 70.3 % (39-80); PLATELET COUNT 355 K/uL (140-440); RBC 3.38 M/ul (4.3-5.7)
[2024-07-10 05:37] LABS: ANION GAP 12.7 (7-21); BUN/CREATININE RATIO 16.17 (6.0-28.6); CALCIUM 8.1 mg/dL (8.5-10.1); CREATININE, SERUM 0.68 mg/dL (0.55-1.02); MAGNESIUM 1.7 mg/dL (1.8-2.4); POTASSIUM 3.7 mmol/L (3.5-5.1)
--- NOTE | 2024-07-10 06:03 | NUR ---
Pt states she appreciates that we have been "staying on top of" her pain.
--- NOTE | 2024-07-10 06:07 | OR ---
[facility] [address] [place], [place] [address] Signed DATE OF OPERATION: 07/09/2024 SURGEON: Jarrod Matos MD PREOPERATIVE DIAGNOSIS: Osteomyelitis, left foot with cellulitis. POSTOPERATIVE DIAGNOSIS: Osteomyelitis, left foot with cellulitis. PROCEDURE PERFORMED: Left below-knee amputation. ENGINEERING DESIGN SUPERVISOR: None. ANESTHESIA: Spinal. BLOOD LOSS: 100 mL. TOURNIQUET TIME: Twenty-four. BRIEF HISTORY: Robb is a 39-year-old insulin-dependent diabetic, who has been poor in her control. She presented to the ER with sepsis and extensive infection in her foot. This has been going on for several years, and she actually had a 4th ray resection about a year ago, but never really had good healing. MRI showed extensive osteomyelitis in the 2nd, 3rd, and 5th rays all the way up into the cuneiforms with soft tissue air and significant fluid. She had cellulitis that initially was up to mid calf, but had receded with IV antibiotics. Her white count normalized and we discussed a below-knee amputation extensively, and she understood and wished to proceed. Risks, benefits, and alternatives were discussed at length. PROCEDURE IN DETAIL: Once consent was obtained, she was taken to the operating room. After adequate anesthesia, she was placed on operating table. All downside pressure points were well padded. A tourniquet was placed in the left lower extremity and the foot was placed in Electronically Signed By: JARROD MATOS MD 07/10/24 0607 PATIENT NAME: OCACIO,ROBB MAY OPERATIVE REPORT DATE OF : 85 REPORT #: [id number] PHYSICIAN: JARROD MATOS MD PCP: NATALIIA BOO MD REPORT IS CONFIDENTIAL AND NOT TO BE RELEASED WITHOUT AUTHORIZATION [facility] [address] [place], [place] [address] Signed a sterile tourniquet bag. The leg was then prepped and draped in a standard sterile fashion. The tourniquet bag was then wrapped with sterile Coban. The below-knee amputation incision with a posterior flap was then marked out one hand's breadth below the tuberosity. A circumferential incision was made all the way around after inflating the tourniquet. The incision was carried through skin and subcutaneous tissue circumferentially. The muscle was incised around both the tibia and the fibula. Both were cleared of soft tissue proximally and transected with the saw. Once that was completed, the posterior dissection was taken through the soft tissue and the neurovascular bundles, which were then clamped. The amputation knife was then used to complete the amputation through the musculature posteriorly. The leg was then passed off the table and taken to Pathology. The neurovascular structures were then isolated. Popliteal nerve was drawn distally and tied off with an 0-silk and cut and allowed to retract back into the calf. The arteries were isolated and double tied with stick tie of 0-silk as was the veins. Once this was completed, the tourniquet was released and no significant bleeding was encountered. The anterior tibia was then beveled and filled with bone wax. The wound was then copiously irrigated with normal saline. The posterior fascia was then closed in the anterior fascia using #1 Vicryl, this was done circumferentially. The subcutaneous tissue was then closed using 0-StrataFix. The skin was closed with interrupted 2-0 nylon. The entire wound was then dressed with Allevyn dressings, fluffs and Kerlix and covered with an David wrap. She was awakened, taken to the recovery room in satisfactory condition. All sponge, needle, and instrument counts were correct. Jarrod Matos MD BA/MODL /[id number] Copies: ~ Electronically Signed By: JARROD MATOS MD 07/10/24 0607 PATIENT NAME: ROBB LOPEZ OPERATIVE REPORT DATE OF : 85 REPORT #: [id number] PHYSICIAN: JARROD MATOS MD PCP: NATALIIA BOO MD REPORT IS CONFIDENTIAL AND NOT TO BE RELEASED WITHOUT AUTHORIZATION
--- NOTE | 2024-07-10 07:18 | NUR ---
Patient reports 6/10 left leg pain. Admin dilaudid 1mg iv and toradol 30mg iv at this time. Patient provided with a snack and fresh water.
[2024-07-10] MEDS ORDERED: Rivaroxaban 10 MG TAB PO SCH (08:00)
[2024-07-10] MEDS ORDERED: POLYETHYLENE GLYCOL 3350 1 PACKET PO ONE (08:30)
[2024-07-10] MEDS ORDERED: lisinopriL 2.5 MG TABLET PO SCH (09:00)
[2024-07-10] MEDS ORDERED: MAGNESIUM SULFATE 2 GM/50 ML BAG IV ONE (09:00)
[2024-07-10] MEDS ORDERED: CEFTRIAXONE/SODIUM CHLORIDE 1 GM/100 ML PIGGYBACK IV SCH (09:00)
[2024-07-10] MEDS ORDERED: FAMOTIDINE 20 MG TAB PO SCH (09:00)
--- NOTE | 2024-07-10 09:33 | NUR ---
Patient up in chair at this time, per PT repor pt tolerated ambulation well. Patient vomited approx 600ml emesis post ambulation. Compazine 5mg iv admin at this time.
--- NOTE | 2024-07-10 10:32 | NUR ---
Patient awake in bed, no distress. Patient denies pain at this time. Legs elevated on pillows. Scheduled miralax with juice admin at this time. Patient denies needs, call light within reach.
--- NOTE | 2024-07-10 12:48 | NUR ---
Patient consumed 100% of lunch. Pt reports nausea at this time. Admin zofran 4mg iv and tylenol 650mg po for reports of 6/10 stump pain.
--- NOTE | 2024-07-10 15:50 | NUR ---
patient called and stated that "something is off". Pt requested accu check, resulted in 240. nurse notified.
--- NOTE | 2024-07-10 15:57 | NUR ---
ANSWERED PATIENT'S CALL LIGHT. EMPTIED PATIENT'S BEDSIDE COMMODE AND CHARTED ON THE BOARD. PATIENT ALSO ASKED FOR AN ICE PACK.
--- NOTE | 2024-07-10 16:17 | NUR ---
Patient reporting she is anxious and having pain in left leg. Admin ativan 0.5mg iv and toradol 30mg iv. Patient assisted to commode to void, 200 ml concentrated urine noted. Pt back to bed, alarm intact.
--- NOTE | 2024-07-10 21:02 | NUR ---
VS OBTAINED. PT DROWSY. SWEATY. DENIES ANY FURTHER NEEDS.
--- NOTE | 2024-07-10 21:35 | NUR ---
BG OBTAINED-175. RN BRANDIE NOTIFIED.
--- NOTE | 2024-07-10 22:06 | NUR ---
Awakens easily, denies c/o pain. on room air. LBKA stump with dressing in place, elevated with pillows. SL patent LA. clear lungs, on room air. turns and repositions self in bed. pleasant and cooperative.
--- NOTE | 2024-07-10 23:28 | NUR ---
ASSISTED PT TO USE BSC, 1 CGA W/ FWW. VOIDS W/O DIFFICULTY. FRESH LINENS AND GOWN PROVIDED.
--- NOTE | 2024-07-11 00:01 | NUR ---
pt c/o lbka 10/28 pain,. medicated with Tylenol 650mg po, c/o increased anxiety. medicated with Ativan 0.5mg IV. Pt awake, watching tv. female frined in room
--- NOTE | 2024-07-11 02:18 | NUR ---
RESTING, EYES CLOSED, NO S/SX DISTRESS, ON ROOM AIR, L BKA DRESSING CDI, ELEVATED WITH PILLOWS. FAMILY FRINED ROOMING IN
--- NOTE | 2024-07-11 04:44 | NUR ---
resting, eyes closed, no distress, L BKA elevated in pillows, dressing CDI
[2024-07-11 05:16] LABS: BASOPHILS 0.6 % (0-2); EOSINOPHILS 3.1 % (0-6); HEMOGLOBIN 8.2 g/dL (12.0-18.0); LYMPHOCYTES 21.4 % (24-44); MCHC 31.6 g/dl (30-36); MCV 79.1 fl (81-99); MONOCYTES 10.2 % (0-12); NEUTROPHILS 64.7 % (39-80); PLATELET COUNT 327 K/uL (140-440); RBC 3.29 M/ul (4.3-5.7); RDW 16.3 (10.5-15.0)
[2024-07-11 05:33] LABS: ANION GAP 8.5 (7-21); BUN/CREATININE RATIO 28.12 (6.0-28.6); CALCIUM 8.2 mg/dL (8.5-10.1); CREATININE, SERUM 0.64 mg/dL (0.55-1.02); MAGNESIUM 2.2 mg/dL (1.8-2.4); POTASSIUM 4.5 mmol/L (3.5-5.1)
[2024-07-11] MEDS ORDERED: XARELTO10 MG PO (07:24)
[2024-07-11] MEDS ORDERED: GABAPENTIN300 MG PO (07:25)
[2024-07-11] MEDS ORDERED: COMFORT EZ SUB-Q (07:29)
[2024-07-11] MEDS ORDERED: LANTUS SOL100 UNIT/1 SUB-Q (07:32)
--- NOTE | 2024-07-11 07:37 | NUR ---
RECIEVED BEDSIDE REPORT FROM YURY DIEGO. DR. TAMEZ ROUNDED DURING BEDSIDE REPORT AND REQUESTED TAKE DOWN OF THE DRESSING. NO S/S OF INFECTION. PT IS READY FOR DISCHARGE.
[2024-07-11 08:26] VITALS: BP 178/97
--- NOTE | 2024-07-11 10:18 | NUR ---
PT DRESSED SELF FOR DISCHARGE. DISCUSSED DISCHARGE INSTRUCTIONS WITH PT AND S/O, BOTH VERBALIZE UNDERSTANDING. PT LEAVES MED-SURG VIA WHEELCHAIR ESCORTED BY THIS RN TO PRIVATE CAR DRIVEN BY S/O. BELONGINGS WITH PT. PT LEAVE IN NO APPARENT DISTRESS.
--- NOTE | 2024-07-11 10:37 | NUR ---
PT FACE SHEET, ORDERS, H&P, AND PHYSICAL THERAPY ASSESSMENT FAXED TO [facility] PAT[facility] FOR REFEERRAL.
--- NOTE | 2024-07-12 07:38 | NUR ---
Chart faxed to [facility] for PT.
== END 2024-07-11 10:18 | disposition home or self-care (01) | DRG 854 ==
LOC: ED 17:13 → MS 20:07
PROVIDERS: Emergency Medicine; Specialist; Student in an Organized Health Care Education/Training Program; ADMIT Student in an Organized Health Care Education/Training Program; ATTEND Student in an Organized Health Care Education/Training Program
PROC: 3E03329 Introduction of Other Anti-infective into Peripheral Vein, Percutaneous Approach (ICD-10-PCS; 2024-07-06)
PROC: 0Y6J0Z1 Detachment at Left Lower Leg, High, Open Approach (ICD-10-PCS; principal; 2024-07-09 10:30)
DX: A41.9 Sepsis, unspecified organism (principal); L03.116 Cellulitis of left lower limb; N39.0 Urinary tract infection, site not specified; L97.525 Non-pressure chronic ulcer of other part of left foot with muscle involvement without evidence of necrosis; M86.172 Other acute osteomyelitis, left ankle and foot; E10.69 Type 1 diabetes mellitus with other specified complication; H60.93 Unspecified otitis externa, bilateral; E10.622 Type 1 diabetes mellitus with other skin ulcer; E10.65 Type 1 diabetes mellitus with hyperglycemia; H66.92 Otitis media, unspecified, left ear; S93.601A Unspecified sprain of right foot, initial encounter; W18.30XA Fall on same level, unspecified, initial encounter; Z98.890 Other specified postprocedural states; I10 Essential (primary) hypertension; I34.0 Nonrheumatic mitral (valve) insufficiency; F17.210 Nicotine dependence, cigarettes, uncomplicated; Z79.899 Other long term (current) drug therapy; Z79.4 Long term (current) use of insulin; Z91.018 Allergy to other foods; Z88.8 Allergy status to other drugs, medicaments and biological substances
CPT/HCPCS: 01482; 36415; 64445; 64447; 71045; 73630; 73723; 80048; 80053; 83036; 83605; 83735; 85025; 85610; 85651; 85730; 87040; 87070; 93306; 94762; 97116; 97161; 97164; A9270; A9579; J0692; J0696; J0780; J1100; J1171; J1644; J1790; J1815; J1885; J2003; J2060; J2250; J2405; J2543; J2704; J2765; J3010; J3475; J3490; J7030; J7121